=== PATIENT | female | born 1960 | race Caucasian/White ===

== ENCOUNTER 2017-02-19 14:27 | Emergency (ER) | payer MEDICAID, OTHER ==
[~2017-02-19] VITALS: Ht 165.1 cm; Wt 120.0 kg
[~2017-02-19 14:27] MED LIST: CELE40TA PO; FURO40TA PO; GLIM2TAB PO; LAMO25 PO; LEVO100T5 PO; LISI-590 PO; LYRI75CA PO; METO-309 PO; NOVOLOGP2 SQ; PRAZ5 PO; RISP3 PO
[2017-02-19 14:35] VITALS: BP 156/85; PULSE 90; RESP 18; TEMP 98.3; O2SAT 97
[2017-02-19 14:43] VITALS: BP 156/85; PULSE 90; RESP 18; O2SAT 97
--- NOTE | 2017-02-19 14:44 | PD ---
HPI Chief Complaint: psychiatric evaluation Time Seen by Provider: 14:40 Travel History International Travel<30 days: No Contact w/Intl Traveler<30days: No History of Present Illness HPI Patient comes to the emergency Department under Urias act by police for suicidal ideations. Patient admits to thoughts of harming herself by walking into traffic. Patient reports she has tried to harm herself in the past approximately 6 months ago. Patient was reportedly seen at [facility] and evaluated there for a cough having chest x-ray along with blood work done and diagnosed with bronchitis and given a prescription for Z-Tano. Patient has discharge paperwork along with prescription with her. Patient was discharged, walked across the street to an urgent care, and started making suicidal statements. Patient's only medical concerns at this time is her chronic pain. PFSH Past Medical History Asthma: Yes Blood Disorders: No Anxiety: Yes Depression: Yes Cardiovascular Problems: Yes (HTN) High Cholesterol: Yes Chest Pain: Yes Congestive Heart Failure: Yes COPD: Yes Cerebrovascular Accident: Yes (CVA X 2 ) Diabetes: Yes Diminished Hearing: No Endocrine: No Gastrointestinal Disorders: No GERD: Yes Genitourinary: No Hepatitis: Yes (C) Hypertension: Yes Immune Disorder: No Implanted Vascular Access Dvce: Yes Musculoskeletal: No Neurologic: No Psychiatric: Yes Respiratory: Yes (COPD) Immunizations Current: Yes Schizophrenia: Yes Sleep Apnea: Yes Thyroid Disease: Yes Menopausal: Yes : 3 Para: 3 Tubal Ligation: Yes Past Surgical History Abdominal Surgery: Yes (CURTIS) Cholecystectomy: Yes Gynecologic Surgery: Yes Hysterectomy: Yes Joint Replacement: Yes ( TOTAL KNEE REPLACEMENT -RIGHT) Oral Surgery: Yes (TEETH EXTRACTED) Other Surgery: Yes Social History Alcohol Use: No Tobacco Use: Yes (1.5 PPD) Substance Use: No Allergies-Medications (Allergen,Severity, Reaction): Coded Allergies: Aspirin (Verified Allergy, Severe, Anaphylaxis, 09/23/16) Darvocet-N 100 (Verified Allergy, Severe, 09/23/16) Tramadol (Verified Allergy, Severe, 09/23/16) Reported Meds & Prescriptions Reported Meds & Active Scripts Active Bactrim DS (Sulfamethoxazole-Trimethoprim) 800-160 Mg Tab 1 Tab PO BID Reported Zestril (Lisinopril) 10 Mg Tab 10 Mg PO DAILY Risperdal (Risperidone) 3 Mg Tab 3 Mg PO HS Novolog Inj (Insulin Aspart) 1,000 Unit/10 Ml Vial 1-9 Units SQ ACHS Max dose at bedtime:( )units; sugars less than 70,(0)units; sugars 150-199,(1) unit; sugars 200-249,(3) units; sugars 250-299,(5) units; sugars 300-349,(7) units; sugars greater than 349,(9) units Lopressor (Metoprolol Tartrate) 50 Mg Tab 50 Mg PO BID Levothyroxine (Levothyroxine Sodium) 100 Mcg Tab 100 Mcg PO DAILY Lamictal (Lamotrigine) 25 Mg Tab 25 Mg PO BID Glimepiride 2 Mg Tab 2 Mg PO DAILY Take with breakfast or first main meal Furosemide 40 Mg Tab 40 Mg PO DAILY Minipress (Prazosin HCl) 5 Mg Cap 5 Mg PO TID Celexa (Citalopram Hydrobromide) 40 Mg Tab 40 Mg PO DAILY Lyrica (Pregabalin) 75 Mg Cap 75 Mg PO DAILY Review of Systems Except as stated in HPI: all other systems reviewed are Neg Physical Exam Narrative GENERAL: Well-developed, overly nourished, in no acute distress, and non-ill appearing. SKIN: Focused skin assessment warm and dry. HEAD: Atraumatic. Normocephalic. EYES: Pupils equal and round. EOMI. No scleral icterus. No injection or drainage. ENT: No nasal bleeding or discharge. Mucous membranes pink and moist. NECK: Trachea midline. Supple. No nuclear rigidity. CARDIOVASCULAR: Regular rate and rhythm. No murmur appreciated. RESPIRATORY: No accessory muscle use. No respiratory distress. Clear to auscultation. Breath sounds equal bilaterally. MUSCULOSKELETAL: No obvious deformities. No clubbing. No cyanosis. No edema. Full range of motion. NEUROLOGICAL: Awake and alert. No obvious cranial nerve deficits. Motor grossly within normal limits. Normal speech. PSYCHIATRIC: Appropriate mood and affect. Data Data Last Documented VS Vital Signs Date Time Temp Pulse Resp B/P Pulse Ox O2 Delivery O2 Flow Rate FiO2 02/19/17 14:43 93 18 02/19/17 14:43 156/85 97 Nasal Cannula 2 02/19/17 14:35 98.3 Orders Complete Blood Count With Diff (02/19/17 14:39) Comprehensive Metabolic Panel (02/19/17 14:39) Urinalysis - C+S If Indicated (02/19/17 14:39) Psych Screen (02/19/17 14:39) Drug Screen, Random Urine (02/19/17 14:39) Alcohol (Ethanol) (02/19/17 14:39) Salicylates (Aspirin) (02/19/17 14:39) Tylenol (Acetaminophen) (02/19/17 14:39) Urine Culture (02/19/17 16:25) Sulfamet-Trimeth Ds 800-160 Mg (Bactrim (02/19/17 17:30) Labs Laboratory Tests Test 02/19/17 02/19/17 14:50 16:25 White Blood Count 13.0 TH/MM3 Red Blood Count 4.08 MIL/MM3 Hemoglobin 12.5 GM/DL Hematocrit 35.9 % Mean Corpuscular Volume 88.0 FL Mean Corpuscular Hemoglobin 30.7 PG Mean Corpuscular Hemoglobin 34.8 % Concent Red Cell Distribution Width 16.1 % Platelet Count 317 TH/MM3 Mean Platelet Volume 6.7 FL Neutrophils (%) (Auto) 86.5 % Lymphocytes (%) (Auto) 8.1 % Monocytes (%) (Auto) 5.2 % Eosinophils (%) (Auto) 0.0 % Basophils (%) (Auto) 0.2 % Neutrophils # (Auto) 11.2 TH/MM3 Lymphocytes # (Auto) 1.1 TH/MM3 Monocytes # (Auto) 0.7 TH/MM3 Eosinophils # (Auto) 0.0 TH/MM3 Basophils # (Auto) 0.0 TH/MM3 CBC Comment DIFF FINAL Differential Comment Sodium Level 136 MEQ/L Potassium Level 4.1 MEQ/L Chloride Level 96 MEQ/L Carbon Dioxide Level 34.6 MEQ/L Anion Gap 5 MEQ/L Blood Urea Nitrogen 11 MG/DL Creatinine 0.68 MG/DL Estimat Glomerular Filtration 89 ML/MIN Rate Random Glucose 134 MG/DL Calcium Level 9.4 MG/DL Total Bilirubin 0.3 MG/DL Aspartate Amino Transf 21 U/L (AST/SGOT) Alanine Aminotransferase 32 U/L (ALT/SGPT) Alkaline Phosphatase 109 U/L Total Protein 8.5 GM/DL Albumin 3.3 GM/DL Salicylates Level 2.6 MG/DL Acetaminophen Level LESS THAN 2.0 MCG/ML Ethyl Alcohol Level LESS THAN 3 MG/DL Urine Color YELLOW Urine Turbidity HAZY Urine pH 6.5 Urine Specific [place] 1.016 Urine Protein TRACE mg/dL Urine Glucose (UA) NEG mg/dL Urine Ketones NEG mg/dL Urine Occult Blood NEG Urine Nitrite POS Urine Bilirubin NEG Urine Urobilinogen LESS THAN 2.0 MG/DL Urine Leukocyte Esterase NEG Urine RBC LESS THAN 1 /hpf Urine WBC 3 /hpf Urine Squamous Epithelial <1 /hpf Cells Urine Bacteria MANY /hpf Urine Mucus FEW /lpf Microscopic Urinalysis Comment CULTURE INDICATED Urine Opiates Screen NEG Urine Barbiturates Screen NEG Urine Amphetamines Screen NEG Urine Benzodiazepines Screen NEG Urine Cocaine Screen NEG Urine Cannabinoids Screen NEG MDM Medical Decision Making Medical Screen Exam Complete: Yes Emergency Medical Condition: Yes Differential Diagnosis Homicidal, suicidal, chronic pain, depression, schizoaffective, UTI, other Narrative Course Patient was seen and examined. Labs were obtained and reviewed. Patient was given a dose of Bactrim in the emergency department and given a prescription to go home. Patient medically cleared for further treatment and evaluation by psych. Final disposition per psych. Diagnosis Primary Impression: UTI (urinary tract infection) Qualified Code: N39.0 - Urinary tract infection without hematuria, site unspecified Patient Instructions: General Instructions, Urinary Tract Infection in Women ( ED) Additional Instructions: Follow-up with your primary care physician this week for reevaluation of urinary tract infection. Take all medication as prescribed. Return to the emergency department if symptoms get worse. Med/Other Pt SpecificInfo: Prescription(s) given Scripts Sulfamethoxazole-Trimethoprim (Bactrim DS)800-160 Mg Tab1 Tab PO BID #14 TAB Ref 0 Prov:Tessa Rodríguez MD 02/19/17 Condition: Stable Israel Mendoza Feb 19, 2017 14:44
[2017-02-19 15:33] LABS: AUTOMATED NEUTROPHIL # 11.2 TH/MM3 (1.8-7.7); BASOPHIL % 0.2 % (0.0-2.0); HEMATOCRIT 35.9 % (35.0-46.0); HEMO FLAGS DIFF FINAL; LYMPH % 8.1 % (9.0-44.0); LYMPHOCYTE # 1.1 TH/MM3 (1.0-4.8); MEAN CORPUSCULAR HEMOGLOBIN 30.7 PG (27.0-34.0); MEAN CORPUSCULAR HGB CONC 34.8 % (32.0-36.0); MONO % 5.2 % (0.0-8.0); NEUT % 86.5 % (16.0-70.0); PLATELET COUNT 317 TH/MM3 (150-450); RED BLOOD COUNT 4.08 MIL/MM3 (4.00-5.30); RED CELL DISTRIBUTION WIDTH 16.1 % (11.6-17.2)
[2017-02-19 15:54] LABS: ALT (GPT) 32 U/L (10-53); ANION GAP 5 MEQ/L (5-15); AST (GOT) 21 U/L (15-37); BICARBONATE 34.6 MEQ/L (21.0-32.0); BLOOD UREA NITROGEN 11 MG/DL (7-18); CHLORIDE 96 MEQ/L (98-107); GLOMERULAR FILTRATION RATE 89 ML/MIN (>89); POTASSIUM 4.1 MEQ/L (3.5-5.1); SODIUM (NA) 136 MEQ/L (136-145)
[2017-02-19 15:56] LABS: ALKALINE PHOSPHATASE 109 U/L (45-117); TOTAL BILIRUBIN ADULT 0.3 MG/DL (0.2-1.0)
[2017-02-19 15:58] LABS: ACETAMINOPHEN LESS THAN 2.0 MCG/ML (10.0-30.0)
[2017-02-19 16:53] LABS: AMPHETAMINE, URINE NEG (NEG); BARBITURATES, URINE NEG (NEG); COCAINE, URINE NEG (NEG)
[2017-02-19 17:17] LABS: BACTERIA, URINE MANY /hpf; BLOOD, URINE NEG (NEG); COMMENT (UR) CULTURE INDICATED; CULTURE IF INDICATED CULTURE INDICATED; GLUCOSE,URINE NEG (NEG); KETONE, URINE NEG (NEG); MUCUS URINE FEW /lpf (OCC); PH, URINE 6.5 (5.0-8.5); SQUAMOUS EPITHELIAL CELL URINE <1 /hpf (0-5); URINE COLOR YELLOW (YELLW/STRAW)
[2017-02-19 17:20] LABS: NITRITE,URINE POS (NEG)
[2017-02-19] MEDS ORDERED: BACT800T5 PO (17:30)
[2017-02-19] MEDS ORDERED: SULFAMETHOXAZOLE-TRIMETHOPRIM DS 800-160 MG TAB PO ONE (17:30)
[2017-02-19 18:06] VITALS: BP 165/78; PULSE 89; RESP 18; O2SAT 98
[2017-02-19 20:44] VITALS: BP 113/54; PULSE 80; RESP 15; O2SAT 91
[2017-02-19 22:55] VITALS: RESP 18
[2017-02-20 02:28] VITALS: BP 122/59; PULSE 98; RESP 19; O2SAT 98
[2017-02-20 06:00] VITALS: BP 108/53; PULSE 100; RESP 18; O2SAT 90
--- NOTE | 2017-02-20 10:49 | PD ---
History of Present Illness Chief Complaint: Psychiatric Symptoms Time Seen by Provider: 10:30 Travel History International Travel<30 Days: No Contact w/Intl Traveler<30days: No Known affected area: No Legal Status Legal Status: Urias Act Urias Act Signed By: AYAAN Kulkarni History of Present Illness: This is a 56-year-old obese female with a history of multiple medical problems including bronchitis, diabetes, cardiovascular disease, history of CVA, etc. who recently came to [place] with her adult son and adult daughter. She states she came here to visit her mother, who had some type of cardiovascular event. The family appears to be indigent and the son and daughter are staying in the family truck at the moment. The patient reportedly went to [facility] yesterday and to the urgent care center across from the hospital yesterday, complaining of suicidal ideation. At this time, the patient is referencing her need for medical care and states she wants to see Dr. Carlyn warner and damian and , who has been her primary care physician in the past. At the same time, when confronted with the need to make an appointment and follow up with her primary care physician, being discharged from this facility, the patient reports suicidal ideation. This physician reviewed the records and notes the patient has made suicide gestures in the past and been variously diagnosed with multiple psychiatric issues, including schizophrenia. The patient does not show any actual evidence of psychotic thinking, including hallucinations, delusions, thought blocking, etc. In fact, this physician feels the patient is being manipulative in order to be taken care of due to her current financial situation and homelessness. While this physician acknowledges the patient may act out and attempt to harm herself to demonstrate her need for hospitalization, this physician feels it is counter therapeutic to give into this manipulativeness at this time. Patient admits she has been noncompliant with treatment in the past, multiple times, with Dr. Carlyn warner. [facility] Past Medical History Hx Anticoagulant Therapy: Yes Asthma: Yes Blood Disorders: No Anxiety: Yes Depression: Yes Cardiovascular Problems: Yes High Cholesterol: Yes Chest Pain: Yes Congestive Heart Failure: Yes COPD: Yes Cerebrovascular Accident: Yes (CVA X 2 ) Diabetes: Yes Patient Takes Glucophage: Yes Diminished Hearing: No Endocrine: No Gastrointestinal Disorders: No GERD: Yes Genitourinary: No Hepatitis: Yes (C) Hypertension: Yes Immune Disorder: No Implanted Vascular Access Dvce: Yes Musculoskeletal: No Neurologic: No Psychiatric: Yes Respiratory: Yes Immunizations Current: Yes Schizophrenia: Yes Sleep Apnea: Yes Thyroid Disease: Yes Tetanus Vaccination: > 5 Years Influenza Vaccination: No Menopausal: Yes : 3 Para: 3 Tubal Ligation: Yes Past Surgical History Abdominal Surgery: Yes (CURTIS) Cholecystectomy: Yes Gynecologic Surgery: Yes Hysterectomy: Yes Joint Replacement: Yes ( TOTAL KNEE REPLACEMENT -RIGHT) Oral Surgery: Yes (TEETH EXTRACTED) Other Surgery: Yes Psychiatric History Psychiatric History Hx Psychiatric Treatment: PATIENT WAS LAST ADMITTED TO [facility] FROM 07/01/16 TO 07/03/16 FOR SCHIZOAFFECTIVE DISORDER. History of Inpatient Treatment: Yes Social History Hx Alcohol Use: No Hx Tobacco Use: Yes (1.5 PPD) Hx Substance Use: No Substance Use Type: Nicotine/Cigarettes Hx of Substance Use Treatment: No Allergies-Medications (Allergen,Severity, Reaction): Coded Allergies: Aspirin (Verified Allergy, Severe, Anaphylaxis, 02/19/17) Darvocet-N 100 (Verified Allergy, Severe, 02/19/17) Tramadol (Verified Allergy, Severe, 02/19/17) [place] (Unverified Allergy, Unknown, 02/19/17) Reported Meds & Prescriptions Reported Meds & Active Scripts Active Bactrim DS (Sulfamethoxazole-Trimethoprim) 800-160 Mg Tab 1 Tab PO BID Reported Zestril (Lisinopril) 10 Mg Tab 10 Mg PO DAILY Risperdal (Risperidone) 3 Mg Tab 3 Mg PO HS Novolog Inj (Insulin Aspart) 1,000 Unit/10 Ml Vial 1-9 Units SQ ACHS Max dose at bedtime:( )units; sugars less than 70,(0)units; sugars 150-199,(1) unit; sugars 200-249,(3) units; sugars 250-299,(5) units; sugars 300-349,(7) units; sugars greater than 349,(9) units Lopressor (Metoprolol Tartrate) 50 Mg Tab 50 Mg PO BID Levothyroxine (Levothyroxine Sodium) 100 Mcg Tab 100 Mcg PO DAILY Lamictal (Lamotrigine) 25 Mg Tab 25 Mg PO BID Glimepiride 2 Mg Tab 2 Mg PO DAILY Take with breakfast or first main meal Furosemide 40 Mg Tab 40 Mg PO DAILY Minipress (Prazosin HCl) 5 Mg Cap 5 Mg PO TID Celexa (Citalopram Hydrobromide) 40 Mg Tab 40 Mg PO DAILY Lyrica (Pregabalin) 75 Mg Cap 75 Mg PO DAILY Review of Systems ROS Limitations: Clinical Condition Exam Exam Limitations: Clinical Condition Alert: Yes Lapel: Person, Place, Date, Situation Mood: Calm Affect: Appropriate Speech: Clear, Logical Eye Contact: Normal Memory Intact: Immediate, Recent, Remote Suicidal: Ideation Insight/Judgement Adequate MDM Medical Decision Making Medical Record Reviewed: Yes Assessment/Plan Patient is being discharged back to her adult son and daughter. She needs to set an appointment with Dr. Carlyn warner and find adequate living situation. Again, despite the risks of the patient acting out, this physician does not feel it is therapeutic to admit her at this time. Patient and adult children need to plan for their self-care more appropriately. Orders Complete Blood Count With Diff (02/19/17 14:39) Comprehensive Metabolic Panel (02/19/17 14:39) Urinalysis - C+S If Indicated (02/19/17 14:39) Psych Screen (02/19/17 14:39) Drug Screen, Random Urine (02/19/17 14:39) Alcohol (Ethanol) (02/19/17 14:39) Salicylates (Aspirin) (02/19/17 14:39) Tylenol (Acetaminophen) (02/19/17 14:39) Urine Culture (02/19/17 16:25) Sulfamet-Trimeth Ds 800-160 Mg (Bactrim (02/19/17 17:30) Diet 2000 Ada Cons Carb (02/19/17 Dinner) Diet Regular Basic (02/20/17 Breakfast) Diet Regular Basic (02/20/17 Lunch) Results Vital Signs Date Time Temp Pulse Resp B/P Pulse Ox O2 Delivery O2 Flow Rate FiO2 02/20/17 06:00 100 18 108/53 90 Room Air 02/20/17 02:28 98 19 122/59 98 Room Air 02/19/17 22:55 18 Room Air 02/19/17 20:44 80 15 113/54 91 Room Air 02/19/17 18:06 89 18 165/78 98 Nasal Cannula 2 02/19/17 14:43 93 18 02/19/17 14:43 90 18 156/85 97 Nasal Cannula 2 02/19/17 14:35 98.3 90 18 156/85 97 Laboratory Tests Test 02/19/17 02/19/17 14:50 16:25 White Blood Count 13.0 Red Blood Count 4.08 Hemoglobin 12.5 Hematocrit 35.9 Mean Corpuscular Volume 88.0 Mean Corpuscular Hemoglobin 30.7 Mean Corpuscular Hemoglobin 34.8 Concent Red Cell Distribution Width 16.1 Platelet Count 317 Mean Platelet Volume 6.7 Neutrophils (%) (Auto) 86.5 Lymphocytes (%) (Auto) 8.1 Monocytes (%) (Auto) 5.2 Eosinophils (%) (Auto) 0.0 Basophils (%) (Auto) 0.2 Neutrophils # (Auto) 11.2 Lymphocytes # (Auto) 1.1 Monocytes # (Auto) 0.7 Eosinophils # (Auto) 0.0 Basophils # (Auto) 0.0 CBC Comment DIFF FINAL Differential Comment Sodium Level 136 Potassium Level 4.1 Chloride Level 96 Carbon Dioxide Level 34.6 Anion Gap 5 Blood Urea Nitrogen 11 Creatinine 0.68 Estimat Glomerular Filtration 89 Rate Random Glucose 134 Calcium Level 9.4 Total Bilirubin 0.3 Aspartate Amino Transf 21 (AST/SGOT) Alanine Aminotransferase 32 (ALT/SGPT) Alkaline Phosphatase 109 Total Protein 8.5 Albumin 3.3 Salicylates Level 2.6 Acetaminophen Level LESS THAN 2.0 Ethyl Alcohol Level LESS THAN 3 Urine Color YELLOW Urine Turbidity HAZY Urine pH 6.5 Urine Specific [place] 1.016 Urine Protein TRACE Urine Glucose (UA) NEG Urine Ketones NEG Urine Occult Blood NEG Urine Nitrite POS Urine Bilirubin NEG Urine Urobilinogen LESS THAN 2.0 Urine Leukocyte Esterase NEG Urine RBC LESS THAN 1 Urine WBC 3 Urine Squamous Epithelial <1 Cells Urine Bacteria MANY Urine Mucus FEW Microscopic Urinalysis Comment CULTURE INDICATED Urine Opiates Screen NEG Urine Barbiturates Screen NEG Urine Amphetamines Screen NEG Urine Benzodiazepines Screen NEG Urine Cocaine Screen NEG Urine Cannabinoids Screen NEG Date/Time Procedure Status Source Growth 02/19/17 16:25 Urine Culture Worksheet Urine Random Urine Pending Diagnosis Primary Impression: UTI (urinary tract infection) Additional Impression: Adjustment disorder with mixed disturbance of emotions and conduct Patient Instructions: General Instructions, Urinary Tract Infection in Women ( ED) Additional Instructions: Follow-up with your primary care physician this week for reevaluation of urinary tract infection. Take all medication as prescribed. Return to the emergency department if symptoms get worse. Prescriptions Sulfamethoxazole-Trimethoprim (Bactrim DS)800-160 Mg Tab1 Tab PO BID #14 TAB Ref 0 Prov:Tessa Rodríguez MD 02/19/17 Condition: Stable Problem Qualifiers Primary Impression: UTI (urinary tract infection) Qualified Code: N39.0 - Urinary tract infection without hematuria, site unspecified Bin Slater MD Feb 20, 2017 10:49
[2017-02-20 11:27] VITALS: BP 143/70; PULSE 100; RESP 18; O2SAT 92
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
== END 2017-02-20 13:45 | disposition home or self-care (01) ==
LOC: NEPE 14:27 → NEPJ 02-20 13:45
DX: F43.25 Adjustment disorder with mixed disturbance of emotions and conduct (principal); N39.0 Urinary tract infection, site not specified; B96.29 Other Escherichia coli [E. coli] as the cause of diseases classified elsewhere; Z79.899 Other long term (current) drug therapy
CPT/HCPCS: 80053; 80307; 81001; 85025; 87077; 87086; 87186

== ENCOUNTER 2017-02-22 00:35 | Emergency (ER) | payer OTHER ==
[~2017-02-22 00:35] MED LIST changes: +BACT800T5 PO
[2017-02-22 00:46] VITALS: BP 137/74; PULSE 74; RESP 20; TEMP 98.3; O2SAT 93
[2017-02-22] MEDS ORDERED: MACR100C2 PO (00:46)
--- NOTE | 2017-02-22 00:49 | PD ---
HPI Chief Complaint: Urias act Time Seen by Provider: 00:50 Travel History International Travel<30 days: No Contact w/Intl Traveler<30days: No Traveled to known affect area: No History of Present Illness HPI This patient is transferred here from [facility] for psychiatric evaluation. Is a 56-year-old female who it appears went to [facility] today for evaluation of chronic abdominal pain. She had lab work and imaging studies. She is being discharged she said that she was going to kill herself by overdose and so she was placed under Urias act. The patient was just seen here a few days ago by psychiatry. She was discharged at that time. She reports that she's been feeling suicidal for the past few weeks. She does endorse a history of bipolar disorder. She does not currently see a psychiatrist on an outpatient basis. Denies any drug or alcohol use, homicidal ideation, she has no other complaints at this time. PFSH Past Medical History Hx Anticoagulant Therapy: Yes Asthma: Yes Blood Disorders: No Anxiety: Yes Depression: Yes Cardiovascular Problems: Yes High Cholesterol: Yes Chest Pain: Yes Congestive Heart Failure: Yes COPD: Yes Cerebrovascular Accident: Yes (CVA X 2 ) Diabetes: Yes Diminished Hearing: No Endocrine: No Gastrointestinal Disorders: No GERD: Yes Genitourinary: No Hepatitis: Yes (C) Hypertension: Yes Immune Disorder: No Implanted Vascular Access Dvce: Yes Musculoskeletal: No Neurologic: No Psychiatric: Yes Respiratory: Yes Immunizations Current: Yes Schizophrenia: Yes Sleep Apnea: Yes Thyroid Disease: Yes Menopausal: Yes : 3 Para: 3 Tubal Ligation: Yes Past Surgical History Abdominal Surgery: Yes (CURTIS) Cholecystectomy: Yes Gynecologic Surgery: Yes Hysterectomy: Yes Joint Replacement: Yes ( TOTAL KNEE REPLACEMENT -RIGHT) Oral Surgery: Yes (TEETH EXTRACTED) Other Surgery: Yes Social History Alcohol Use: No Tobacco Use: Yes (1.5 PPD) Substance Use: No Allergies-Medications (Allergen,Severity, Reaction): Coded Allergies: Aspirin (Verified Allergy, Severe, Anaphylaxis, 02/22/17) Darvocet-N 100 (Verified Allergy, Severe, 02/22/17) Tramadol (Verified Allergy, Severe, 02/22/17) Gabapentin (Verified Allergy, Unknown, 02/22/17) per Discharge paperwork from [facility]. Grape (Verified Allergy, Unknown, 02/22/17) Grape Flavor - per Discharge paperwork from [facility]. Miralax (Verified Allergy, Unknown, 02/22/17) per Discharge paperwork from [facility]. Oxycodone (Verified Allergy, Unknown, 02/22/17) per Discharge paperwork from [facility]. Propoxyphene (Verified Allergy, Unknown, 02/22/17) per Discharge paperwork from [facility]. [place] (Unverified Allergy, Unknown, 02/22/17) Uncoded Allergies: Tape (Allergy, Unknown, 02/20/17) per Discharge paperwork from [facility]. Reported Meds & Prescriptions Reported Meds & Active Scripts Active Macrobid (Nitrofurantoin Monoh/Nitrofur Macro) 100 Mg Cap 100 Mg PO BID 7 Days Bactrim DS (Sulfamethoxazole-Trimethoprim) 800-160 Mg Tab 1 Tab PO BID Reported Zestril (Lisinopril) 10 Mg Tab 10 Mg PO DAILY Risperdal (Risperidone) 3 Mg Tab 3 Mg PO HS Novolog Inj (Insulin Aspart) 1,000 Unit/10 Ml Vial 1-9 Units SQ ACHS Max dose at bedtime:( )units; sugars less than 70,(0)units; sugars 150-199,(1) unit; sugars 200-249,(3) units; sugars 250-299,(5) units; sugars 300-349,(7) units; sugars greater than 349,(9) units Lopressor (Metoprolol Tartrate) 50 Mg Tab 50 Mg PO BID Levothyroxine (Levothyroxine Sodium) 100 Mcg Tab 100 Mcg PO DAILY Lamictal (Lamotrigine) 25 Mg Tab 25 Mg PO BID Glimepiride 2 Mg Tab 2 Mg PO DAILY Take with breakfast or first main meal Furosemide 40 Mg Tab 40 Mg PO DAILY Minipress (Prazosin HCl) 5 Mg Cap 5 Mg PO TID Celexa (Citalopram Hydrobromide) 40 Mg Tab 40 Mg PO DAILY Lyrica (Pregabalin) 75 Mg Cap 75 Mg PO DAILY Review of Systems Except as stated in HPI: all other systems reviewed are Neg Physical Exam Narrative GENERAL: Well developed well-nourished female in no acute distress SKIN: Warm and dry. HEAD: Atraumatic. Normocephalic. EYES: Pupils equal and round. No scleral icterus. No injection or drainage. ENT: No nasal bleeding or discharge. Mucous membranes pink and moist. NECK: Trachea midline. No JVD. CARDIOVASCULAR: Regular rate and rhythm. No murmur appreciated. RESPIRATORY: No accessory muscle use. Clear to auscultation. Breath sounds equal bilaterally. GASTROINTESTINAL: Abdomen soft, non-tender, nondistended. MUSCULOSKELETAL: No obvious deformities. No clubbing. No cyanosis. No edema. NEUROLOGICAL: Awake and alert. No obvious cranial nerve deficits. Motor grossly within normal limits. Normal speech. PSYCHIATRIC: Appropriate mood and affect; insight and judgment normal. Data Data Last Documented VS Vital Signs Date Time Temp Pulse Resp B/P Pulse Ox O2 Delivery O2 Flow Rate FiO2 02/22/17 00:46 98.3 74 20 137/74 93 Orders Nitrofurantoin Monohyd Macrocr (Macrobid (02/22/17 00:45) Psych Screen (02/22/17 00:45) [facility] Medical Decision Making Medical Screen Exam Complete: Yes Emergency Medical Condition: Yes Medical Record Reviewed: Yes Differential Diagnosis Malingering, bipolar disorder, acute psychosis, substance-induced disorder, depression, adjustment reaction Narrative Course I reviewed the patient's labs from [facility], CBC reveals a WBC of 11.2 otherwise unremarkable, urinalysis revealed 19 wbc's otherwise unremarkable, BMP is unremarkable, CT of the abdomen reveals no acute abnormalities, The patient was seen here a few days ago and saw psychiatry. She had a urinalysis at that time which reveals esbl Escherichia coli, resistant to many antibiotics, susceptible to Macrobid. She was discharged with a prescription for Bactrim but she lost the prescription. She will be started on Macrobid here. Mental health screening discussed with the patient. Psychiatric screen ordered. The patient is medically cleared for psychiatric disposition. Diagnosis Primary Impression: Suicidal ideation Scripts Nitrofurantoin Monohydrate Macrocrystals (Macrobid)100 Mg [id number] Mg PO BID 7 Days Ref 0 Prov:Kurtis Obregon MD 02/22/17 Ez Lobo Feb 22, 2017 00:49
[2017-02-22] MEDS: NITROFURANTOIN MONOHYD MACROCR 100 MG CAP PO SCH ×2 (00:58→11:09)
[2017-02-22 03:15] VITALS: BP 168/73; PULSE 72; RESP 18; O2SAT 98
== END 2017-02-22 11:46 | disposition home or self-care (01) ==
LOC: NEPD 00:35 → NEPB 11:46
DX: R45.851 Suicidal ideations (principal); F31.9 Bipolar disorder, unspecified; F41.8 Other specified anxiety disorders; I50.9 Heart failure, unspecified; I10 Essential (primary) hypertension; F20.9 Schizophrenia, unspecified; F17.210 Nicotine dependence, cigarettes, uncomplicated
CPT/HCPCS: 99284

== ENCOUNTER 2017-02-22 14:32 | Emergency (ER) | payer OTHER ==
[~2017-02-22] VITALS: Ht 162.6 cm; Wt 100.0 kg
[~2017-02-22 14:32] MED LIST changes: +MACR100C2 PO
[2017-02-22 15:29] VITALS: BP 148/74; PULSE 75; RESP 18; TEMP 98; TEMP 98.9; O2SAT 95
--- NOTE | 2017-02-22 15:56 | PD ---
HPI Chief Complaint: Psychiatric Symptoms Time Seen by Provider: 15:53 Travel History International Travel<30 days: No Contact w/Intl Traveler<30days: No Traveled to known affect area: No History of Present Illness HPI Patient comes to the emergency Department under Urias act by police for suicidal statements. Patient states she does not want to live anymore. Patient reports she has tried to harm herself in the past. Patient was just seen in the emergency department 3 days ago for same. Patient reports she is taking her antibiotics as prescribed. Patient's only medical concerns at this time is her chronic pain. Denies any fevers, chest pain, abdominal pain nausea vomiting, or headaches. PFSH Past Medical History Hx Anticoagulant Therapy: Yes Asthma: Yes Blood Disorders: No Anxiety: Yes Depression: Yes Cardiovascular Problems: Yes High Cholesterol: Yes Chest Pain: Yes Congestive Heart Failure: Yes COPD: Yes Cerebrovascular Accident: Yes (CVA X 2 ) Diabetes: Yes Diminished Hearing: No Endocrine: No Gastrointestinal Disorders: No GERD: Yes Genitourinary: No Hepatitis: Yes (C) Hypertension: Yes Immune Disorder: No Implanted Vascular Access Dvce: Yes Musculoskeletal: No Neurologic: No Psychiatric: Yes Respiratory: Yes Immunizations Current: Yes Schizophrenia: Yes Sleep Apnea: Yes Thyroid Disease: Yes Menopausal: Yes : 3 Para: 3 Tubal Ligation: Yes Past Surgical History Abdominal Surgery: Yes (CURTIS) Cholecystectomy: Yes Gynecologic Surgery: Yes Hysterectomy: Yes Joint Replacement: Yes ( TOTAL KNEE REPLACEMENT -RIGHT) Oral Surgery: Yes (TEETH EXTRACTED) Other Surgery: Yes Social History Alcohol Use: No Tobacco Use: Yes (1.5 PPD) Substance Use: No Allergies-Medications (Allergen,Severity, Reaction): Coded Allergies: Aspirin (Verified Allergy, Severe, Anaphylaxis, 02/22/17) Darvocet-N 100 (Verified Allergy, Severe, 02/22/17) Tramadol (Verified Allergy, Severe, 02/22/17) Gabapentin (Verified Allergy, Unknown, 02/22/17) per Discharge paperwork from [facility]. Grape (Verified Allergy, Unknown, 02/22/17) Grape Flavor - per Discharge paperwork from [facility]. Miralax (Verified Allergy, Unknown, 02/22/17) per Discharge paperwork from [facility]. Oxycodone (Verified Allergy, Unknown, 02/22/17) per Discharge paperwork from [facility]. Propoxyphene (Verified Allergy, Unknown, 02/22/17) per Discharge paperwork from [facility]. [place] (Unverified Allergy, Unknown, 02/22/17) *MDRO Multi-Drug Resistant Organism (Verified Adverse Reaction, Unknown, ) ESBL E. coli (urine) - 02/19/2017 Uncoded Allergies: Tape (Allergy, Unknown, 02/20/17) per Discharge paperwork from [facility]. Reported Meds & Prescriptions Reported Meds & Active Scripts Active Macrobid (Nitrofurantoin Monoh/Nitrofur Macro) 100 Mg Cap 100 Mg PO BID 7 Days Bactrim DS (Sulfamethoxazole-Trimethoprim) 800-160 Mg Tab 1 Tab PO BID Reported Zestril (Lisinopril) 10 Mg Tab 10 Mg PO DAILY Risperdal (Risperidone) 3 Mg Tab 3 Mg PO HS Novolog Inj (Insulin Aspart) 1,000 Unit/10 Ml Vial 1-9 Units SQ ACHS Max dose at bedtime:( )units; sugars less than 70,(0)units; sugars 150-199,(1) unit; sugars 200-249,(3) units; sugars 250-299,(5) units; sugars 300-349,(7) units; sugars greater than 349,(9) units Lopressor (Metoprolol Tartrate) 50 Mg Tab 50 Mg PO BID Levothyroxine (Levothyroxine Sodium) 100 Mcg Tab 100 Mcg PO DAILY Lamictal (Lamotrigine) 25 Mg Tab 25 Mg PO BID Glimepiride 2 Mg Tab 2 Mg PO DAILY Take with breakfast or first main meal Furosemide 40 Mg Tab 40 Mg PO DAILY Minipress (Prazosin HCl) 5 Mg Cap 5 Mg PO TID Celexa (Citalopram Hydrobromide) 40 Mg Tab 40 Mg PO DAILY Lyrica (Pregabalin) 75 Mg Cap 75 Mg PO DAILY Review of Systems Except as stated in HPI: all other systems reviewed are Neg Physical Exam Narrative GENERAL: Well-developed, overly nourished, in no acute distress, and non-ill appearing. SKIN: Focused skin assessment warm and dry. HEAD: Atraumatic. Normocephalic. EYES: Pupils equal and round. EOMI. No scleral icterus. No injection or drainage. ENT: No nasal bleeding or discharge. Mucous membranes pink and moist. NECK: Trachea midline. Supple. No nuclear rigidity. CARDIOVASCULAR: Regular rate and rhythm. No murmur appreciated. RESPIRATORY: No accessory muscle use. No respiratory distress. Clear to auscultation. Breath sounds equal bilaterally. MUSCULOSKELETAL: No obvious deformities. No clubbing. No cyanosis. No edema. Full range of motion. NEUROLOGICAL: Awake and alert. No obvious cranial nerve deficits. Motor grossly within normal limits. Normal speech. PSYCHIATRIC: Appropriate mood and affect. Data Data Last Documented VS Vital Signs Date Time Temp Pulse Resp B/P Pulse Ox O2 Delivery O2 Flow Rate FiO2 02/22/17 15:29 98.9 75 18 148/74 95 Orders Complete Blood Count With Diff (02/22/17 15:39) Comprehensive Metabolic Panel (02/22/17 15:39) Urinalysis - C+S If Indicated (02/22/17 15:39) Psych Screen (02/22/17 15:39) Drug Screen, Random Urine (02/22/17 15:39) Alcohol (Ethanol) (02/22/17 15:39) Salicylates (Aspirin) (02/22/17 15:39) Tylenol (Acetaminophen) (02/22/17 15:39) Labs Laboratory Tests Test 02/22/17 16:12 White Blood Count 9.8 TH/MM3 Red Blood Count 4.12 MIL/MM3 Hemoglobin 12.0 GM/DL Hematocrit 36.6 % Mean Corpuscular Volume 88.7 FL Mean Corpuscular Hemoglobin 29.2 PG Mean Corpuscular Hemoglobin 33.0 % Concent Red Cell Distribution Width 15.9 % Platelet Count 262 TH/MM3 Mean Platelet Volume 6.4 FL Neutrophils (%) (Auto) 68.3 % Lymphocytes (%) (Auto) 20.8 % Monocytes (%) (Auto) 9.3 % Eosinophils (%) (Auto) 0.8 % Basophils (%) (Auto) 0.8 % Neutrophils # (Auto) 6.7 TH/MM3 Lymphocytes # (Auto) 2.0 TH/MM3 Monocytes # (Auto) 0.9 TH/MM3 Eosinophils # (Auto) 0.1 TH/MM3 Basophils # (Auto) 0.1 TH/MM3 CBC Comment DIFF FINAL Differential Comment Urine Color YELLOW Urine Turbidity CLEAR Urine pH 5.5 Urine Specific [place] 1.006 Urine Protein NEG mg/dL Urine Glucose (UA) NEG mg/dL Urine Ketones NEG mg/dL Urine Occult Blood NEG Urine Nitrite NEG Urine Bilirubin NEG Urine Urobilinogen LESS THAN 2.0 MG/DL Urine Leukocyte Esterase TRACE Urine WBC 1 /hpf Urine Squamous Epithelial <1 /hpf Cells Urine Amorphous Sediment RARE Urine Bacteria OCC /hpf Microscopic Urinalysis Comment CULT NOT INDICATED Sodium Level 134 MEQ/L Potassium Level 3.7 MEQ/L Chloride Level 94 MEQ/L Carbon Dioxide Level 33.7 MEQ/L Anion Gap 6 MEQ/L Blood Urea Nitrogen 8 MG/DL Creatinine 0.76 MG/DL Estimat Glomerular Filtration 78 ML/MIN Rate Random Glucose 108 MG/DL Calcium Level 8.9 MG/DL Total Bilirubin 0.4 MG/DL Aspartate Amino Transf 16 U/L (AST/SGOT) Alanine Aminotransferase 24 U/L (ALT/SGPT) Alkaline Phosphatase 91 U/L Total Protein 7.6 GM/DL Albumin 3.4 GM/DL Salicylates Level 2.5 MG/DL Urine Opiates Screen NEG Acetaminophen Level LESS THAN 2.0 MCG/ML Urine Barbiturates Screen NEG Urine Amphetamines Screen NEG Urine Benzodiazepines Screen NEG Urine Cocaine Screen NEG Urine Cannabinoids Screen NEG Ethyl Alcohol Level LESS THAN 3 MG/DL MDM Medical Decision Making Medical Screen Exam Complete: Yes Emergency Medical Condition: Yes Differential Diagnosis Homicidal, suicidal, malingering, schizoaffective, depression, other Narrative Course Patient was seen and examined. Labs were obtained and reviewed. Patient medically cleared for further treatment and evaluation by psych. Final disposition per psych. Diagnosis Primary Impression: Suicidal ideation Condition: Stable Israel Mendoza Feb 22, 2017 15:56
[2017-02-22 16:58] LABS: BACTERIA, URINE OCC /hpf; BLOOD, URINE NEG (NEG); COMMENT (UR) CULT NOT INDICATED; CULTURE IF INDICATED CULT NOT INDICATED; GLUCOSE,URINE NEG (NEG); KETONE, URINE NEG (NEG); NITRITE,URINE NEG (NEG); PH, URINE 5.5 (5.0-8.5); SQUAMOUS EPITHELIAL CELL URINE <1 /hpf (0-5); URINE COLOR YELLOW (YELLW/STRAW)
[2017-02-22 16:59] LABS: AUTOMATED NEUTROPHIL # 6.7 TH/MM3 (1.8-7.7); BASOPHIL # 0.1 TH/MM3 (0-0.2); BASOPHIL % 0.8 % (0.0-2.0); EOSINOPHIL # 0.1 TH/MM3 (0-0.4); EOSINOPHIL % 0.8 % (0.0-4.0); HEMATOCRIT 36.6 % (35.0-46.0); HEMO FLAGS DIFF FINAL; LYMPH % 20.8 % (9.0-44.0); MEAN CELL VOLUME 88.7 FL (80.0-100.0); MEAN CORPUSCULAR HEMOGLOBIN 29.2 PG (27.0-34.0); MONO % 9.3 % (0.0-8.0); NEUT % 68.3 % (16.0-70.0); PLATELET COUNT 262 TH/MM3 (150-450); RED BLOOD COUNT 4.12 MIL/MM3 (4.00-5.30); RED CELL DISTRIBUTION WIDTH 15.9 % (11.6-17.2); WHITE BLOOD COUNT 9.8 TH/MM3 (4.0-11.0)
[2017-02-22 17:04] LABS: AMPHETAMINE, URINE NEG (NEG); BARBITURATES, URINE NEG (NEG); COCAINE, URINE NEG (NEG)
[2017-02-22 17:12] LABS: ANION GAP 6 MEQ/L (5-15); AST (GOT) 16 U/L (15-37); BICARBONATE 33.7 MEQ/L (21.0-32.0); BLOOD UREA NITROGEN 8 MG/DL (7-18); CHLORIDE 94 MEQ/L (98-107); GLOMERULAR FILTRATION RATE 78 ML/MIN (>89); POTASSIUM 3.7 MEQ/L (3.5-5.1); SODIUM (NA) 134 MEQ/L (136-145)
[2017-02-22 17:15] LABS: ACETAMINOPHEN LESS THAN 2.0 MCG/ML (10.0-30.0); ALKALINE PHOSPHATASE 91 U/L (45-117); ALT (GPT) 24 U/L (10-53); TOTAL BILIRUBIN ADULT 0.4 MG/DL (0.2-1.0)
[2017-02-22] MEDS ORDERED: ACETAMINOPHEN 500 MG CPLT PO ONE (20:45)
[2017-02-22] MEDS ORDERED: IBUPROFEN 600 MG TAB PO ONE (22:15)
[2017-02-22 22:34] VITALS: BP 143/59; PULSE 87; RESP 20; TEMP 99; O2SAT 97
[2017-02-23 06:35] VITALS: BP 149/73; PULSE 82; RESP 16; O2SAT 95
[2017-02-23 07:30] VITALS: BP 138/77; PULSE 78; RESP 16; TEMP 97.8; O2SAT 99
== END 2017-02-23 09:29 ==
LOC: NEDAMB 14:32 → NEPB 02-23 09:29
DX: R45.851 Suicidal ideations (principal); I50.9 Heart failure, unspecified; Z79.01 Long term (current) use of anticoagulants
CPT/HCPCS: 80053; 80307; 81001; 85025; 99285

== ENCOUNTER 2017-03-23 16:45 | Inpatient (IN) | payer MEDICAID, OTHER ==
[2017-03-23 19:00] VITALS: BP 150/73; PULSE 94; RESP 20; TEMP 99; O2SAT 89
[2017-03-23] MEDS ORDERED: GLUCAGON 1 MG/ML VIAL OTHER PRN (19:30)
[2017-03-23] MEDS ORDERED: DEXTROSE 50% IN WATER 50 ML VIAL(D50) IV PUSH PRN (19:30)
[2017-03-23] MEDS ORDERED: ALUMINUM/MAGNESIUM/SIMETH 30 ML CUP PO PRN (19:30)
[2017-03-23] MEDS ORDERED: BENZTROPINE MESYLATE 2 MG/2 ML VIAL IM PRN (19:30)
[2017-03-23] MEDS ORDERED: MAGNESIUM HYDROXIDE SUSP 30 ML CUP PO PRN (19:30)
[2017-03-23] MEDS ORDERED: BENZTROPINE MESYLATE 1 MG TAB PO PRN (19:30)
[2017-03-23] MEDS ORDERED: LORazepam 2 MG/ML VIAL IM PRN (19:30)
[2017-03-23] MEDS: METOPROLOL TARTRATE 50 MG TAB PO SCH (20:16)
[2017-03-23] MEDS: INSULIN ASPART SUPPLEMENTAL SCALE SQ SCH (20:16)
[2017-03-23] MEDS: LORazepam 0.5 MG TAB PO PRN (20:18)
[2017-03-23] MEDS: diphenhydrAMINE HCL 50 MG CAP PO PRN (23:43)
[2017-03-24 06:29] VITALS: BP 130/67; PULSE 77; RESP 17; TEMP 98.1
[2017-03-24] MEDS: INSULIN ASPART SUPPLEMENTAL SCALE SQ SCH ×4 (06:38→21:00)
[2017-03-24] MEDS: PRAZOSIN HCL 5 MG CAP PO SCH ×4 (08:23→17:03)
[2017-03-24] MEDS: PREGABALIN 75 MG CAP PO SCH (08:23)
[2017-03-24] MEDS: LISINOPRIL 10 MG TAB PO SCH (08:23)
[2017-03-24] MEDS: GLIMEPIRIDE 2 MG TAB PO SCH (08:24)
[2017-03-24] MEDS: METOPROLOL TARTRATE 50 MG TAB PO SCH ×2 (08:24→20:58)
[2017-03-24] MEDS: NICOTINE 21 MG/24 HR PATCH T-DERMAL SCH (08:24)
[2017-03-24] MEDS: REMOVE OLD PATCH T-DERMAL SCH (08:26)
[2017-03-24] MEDS: LEVOTHYROXINE SODIUM 100 MCG TAB PO SCH (08:26)
[2017-03-24 08:39] LABS: AUTOMATED NEUTROPHIL # 11.4 TH/MM3 (1.8-7.7); BASOPHIL # 0.1 TH/MM3 (0-0.2); BASOPHIL % 0.4 % (0.0-2.0); EOSINOPHIL # 0.1 TH/MM3 (0-0.4); EOSINOPHIL % 0.6 % (0.0-4.0); HEMATOCRIT 36.6 % (35.0-46.0); HEMO FLAGS DIFF FINAL; LYMPH % 9.6 % (9.0-44.0); LYMPHOCYTE # 1.3 TH/MM3 (1.0-4.8); MEAN CELL VOLUME 90.6 FL (80.0-100.0); MEAN CORPUSCULAR HEMOGLOBIN 29.9 PG (27.0-34.0); MEAN CORPUSCULAR HGB CONC 33.1 % (32.0-36.0); MONO % 6.6 % (0.0-8.0); NEUT % 82.8 % (16.0-70.0); PLATELET COUNT 236 TH/MM3 (150-450); RED BLOOD COUNT 4.04 MIL/MM3 (4.00-5.30); RED CELL DISTRIBUTION WIDTH 15.9 % (11.6-17.2); WHITE BLOOD COUNT 13.8 TH/MM3 (4.0-11.0)
[2017-03-24] MEDS ORDERED: LEVOTHYROXINE SODIUM 100 MCG TAB PO SCH (09:00)
[2017-03-24] MEDS ORDERED: FUROSEMIDE 40 MG TAB PO SCH (09:00)
[2017-03-24 09:16] LABS: ALKALINE PHOSPHATASE 97 U/L (45-117); ALT (GPT) 15 U/L (10-53); ANION GAP 5 MEQ/L (5-15); AST (GOT) 10 U/L (15-37); BICARBONATE 34.8 MEQ/L (21.0-32.0); BLOOD UREA NITROGEN 10 MG/DL (7-18); CHLORIDE 100 MEQ/L (98-107); GLOMERULAR FILTRATION RATE 101 ML/MIN (>89); HDL CHOLESTEROL 37.9 MG/DL (40.0-60.0); LDL CHOLESTEROL 147 MG/DL (0-99); POTASSIUM 4.1 MEQ/L (3.5-5.1); SODIUM (NA) 140 MEQ/L (136-145); TOTAL BILIRUBIN ADULT 0.4 MG/DL (0.2-1.0)
[2017-03-24 09:58] LABS: HEMOGLOBIN A1a 1.2 %; HEMOGLOBIN Ao 84.6 %; HEMOGLOBIN F 1.1 %; HEMOGLOBIN LA1C 2.2 %
[2017-03-24] MEDS ORDERED: RESP: ALBUTEROL 1.25 MG/3 ML NEB (PRN) NEB (10:45)
--- NOTE | 2017-03-24 11:11 | PD.CONS ---
HPI Service [facility] Hospitalists Consult Requested By Russell Pink M.D. Reason for Consult Assit in the management of medical condition Primary Care Physician No Primary Care Physician Diagnoses: (1) Hypothyroid (2) CHF (congestive heart failure) (3) HTN (hypertension) (4) DM2 (diabetes mellitus, type 2) (5) Suicidal ideation (6) Major depressive disorder History of Present Illness Ms. Arvizu is 56 yo, with reported past medical history that has varied from hospitalization to hospitalization. She is currently being admitted under Urias act to the [facility] psychiatric service for depression with suicidal ideation and the Hospitalist team was consulted for medical management. Presently, Ms. Arvizu is reporting having a cold with cough, wheezing, shortness of breath. She stated the cold has been present for several days. She noted she is on oxygen at home and has not had to increase her delivery. Presently, Ms. Arvizu is endorsing history of hypothyroidism, CHF, hypertension , CHF, and COPD. She endorsed smoking history and continues to smoke "4-5 a day. She was asked about medication compliance and said she "takes everything prescribed to me." No other issues or problems were reported by Ms. Arvizu. Review of Systems Except as stated in HPI: all other systems reviewed are Neg Past Family Social History Allergies: Coded Allergies: Aspirin (Verified Allergy, Severe, Anaphylaxis, 02/22/17) Darvocet-N 100 (Verified Allergy, Severe, 02/22/17) Tramadol (Verified Allergy, Severe, 02/22/17) Gabapentin (Verified Allergy, Unknown, 02/22/17) per Discharge paperwork from [facility]. Grape (Verified Allergy, Unknown, 02/22/17) Grape Flavor - per Discharge paperwork from [facility]. Miralax (Verified Allergy, Unknown, 02/22/17) per Discharge paperwork from [facility]. Oxycodone (Verified Allergy, Unknown, 02/22/17) per Discharge paperwork from [facility]. Propoxyphene (Verified Allergy, Unknown, 02/22/17) per Discharge paperwork from [facility]. [place] (Unverified Allergy, Unknown, 02/22/17) *MDRO Multi-Drug Resistant Organism (Verified Adverse Reaction, Unknown, ) ESBL E. coli (urine) - 02/19/2017 Uncoded Allergies: Tape (Allergy, Unknown, 02/20/17) per Discharge paperwork from [facility]. Past Medical History Asthma: Yes Blood Disorders: No Anxiety: Yes Depression: Yes Cardiovascular Problems: Yes (HTN) High Cholesterol: Yes Chest Pain: Yes Congestive Heart Failure: Yes COPD: Yes Cerebrovascular Accident: Yes (CVA) Diabetes: Yes Patient Takes Glucophage: No Diminished Hearing: No Endocrine: No Gastrointestinal Disorders: No GERD: Yes Genitourinary: No Hepatitis: Yes (C) Hypertension: Yes Immune Disorder: No Implanted Vascular Access Dvce: Yes Musculoskeletal: Bilateral knee replacement Neurologic: No Psychiatric: Yes Respiratory: Yes (COPD) Immunizations Current: Yes Schizophrenia: Yes Sleep Apnea: Yes (?) Thyroid Disease: Yes Menopausal: Yes : 3 Para: 3 Tubal Ligation: Yes Past Surgical History Abdominal Surgery: Yes (CURTIS) Cholecystectomy: Yes Gynecologic Surgery: Yes Hysterectomy: Yes Joint Replacement: Yes (TOTAL KNEE REPLACEMENT -LEFT/ TOTAL KNEE REPLACEMENT - RIGHT) Oral Surgery: Yes (TEETH EXTRACTED) Reported Medications Reported Meds & Active Scripts Reported Zestril (Lisinopril) 10 Mg Tab 10 Mg PO DAILY Risperdal (Risperidone) 3 Mg Tab 3 Mg PO HS Novolog Inj (Insulin Aspart) 1,000 Unit/10 Ml Vial 1-9 Units SQ ACHS Max dose at bedtime:( )units; sugars less than 70,(0)units; sugars 150-199,(1) unit; sugars 200-249,(3) units; sugars 250-299,(5) units; sugars 300-349,(7) units; sugars greater than 349,(9) units Lopressor (Metoprolol Tartrate) 50 Mg Tab 50 Mg PO BID Levothyroxine (Levothyroxine Sodium) 100 Mcg Tab 100 Mcg PO DAILY Lamictal (Lamotrigine) 25 Mg Tab 25 Mg PO BID Glimepiride 2 Mg Tab 2 Mg PO DAILY Take with breakfast or first main meal Furosemide 40 Mg Tab 40 Mg PO DAILY Minipress (Prazosin HCl) 5 Mg Cap 5 Mg PO TID Celexa (Citalopram Hydrobromide) 40 Mg Tab 40 Mg PO DAILY Lyrica (Pregabalin) 75 Mg Cap 75 Mg PO DAILY Active Ordered Medications Current Medications Medications (Trade) Dose Ordered Sig/Vicenta Route Start Time Stop Time Status Last Admin (Ativan) 0.5 mg Q12H PRN PO 03/23/17 19:30 03/23/17 20:18 (Ativan Inj) 0.5 mg Q12H PRN IM 03/23/17 19:30 (Benadryl) 50 mg HS PRN PO 03/23/17 19:30 03/23/17 23:43 (Tylenol) 650 mg Q4H PRN PO 03/23/17 19:30 (Milk Of Magnesia Liq) 30 ml DAILY PRN PO 03/23/17 19:30 (Mag-Al Plus Susp Liq) 30 ml Q6H PRN PO 03/23/17 19:30 (Habitrol 21 Mg Patch.24 Hr) 1 patch DAILY T-DERMAL 03/24/17 09:00 03/24/17 08:24 (Cogentin) 1 mg Q12H PRN PO 03/23/17 19:30 (Cogentin Inj) 1 mg Q12H PRN IM 03/23/17 19:30 Miscellaneous Information 1 DAILY T-DERMAL 03/24/17 09:00 (D50w (Vial) Inj) 25 ml UNSCH PRN IV PUSH 03/23/17 19:30 (Glucagon Inj) 1 mg UNSCH PRN OTHER 03/23/17 19:30 (Amaryl) 2 mg DAILY PO 03/24/17 09:00 03/24/17 08:24 (Prinivil) 10 mg DAILY PO 03/24/17 09:00 03/24/17 08:23 (Lopressor) 50 mg BID PO 03/23/17 21:00 03/24/17 08:24 (Minipress) 5 mg TID PO 03/24/17 09:00 03/24/17 08:23 (Lyrica) 75 mg DAILY PO 03/24/17 09:00 03/24/17 08:23 (Synthroid) 100 mcg DAILY@0600 PO 03/24/17 09:00 03/24/17 08:26 (Lipitor) 40 mg HS PO 03/24/17 21:00 (Robitussin Dm 200-20 Mg/10 ml Liq) 10 ml Q6H PRN PO 03/24/17 10:45 (Cymbalta Dr) 20 mg BID PO 03/24/17 21:00 (Invega Er) 9 mg HS PO 03/24/17 21:00 (Lithotabs) 300 mg Q8HR PO 03/24/17 14:00 Family History Pt reported family history of diabetes. Social History Pt endorsed smoking cigarettes "4-5 /day" yet medical record indicated pt had previously reported smoking 1.5 pp/day. Pt denied personal history of alcohol and illicit/recreational drug use. Physical Exam Vital Signs Vital Signs Date Time Temp Pulse Resp B/P Pulse Ox O2 Delivery O2 Flow Rate FiO2 03/24/17 09:26 18 03/24/17 06:29 98.1 77 17 130/67 03/23/17 19:00 99.0 94 20 150/73 89 Physical Exam GENERAL: This is a morbidly obese, well-developed patient, in no apparent distress encountered on psychiatric unit with oxgen concentrator nearby ( delivering 3L). SKIN: No rashes, ecchymoses or lesions. Cool and dry. HEAD: Atraumatic. Normocephalic. No temporal or scalp tenderness. EYES: Pupils equal round and reactive. Extraocular motions intact. No scleral icterus. No injection or drainage. ENT: Nose without bleeding, purulent drainage or septal hematoma. Throat without erythema, tonsillar hypertrophy or exudate. Uvula midline. Airway patent. NECK: Trachea midline. No JVD or lymphadenopathy. Supple, nontender, no meningeal signs. CARDIOVASCULAR: Regular rate and rhythm without murmurs, gallops, or rubs. RESPIRATORY: Clear to auscultation. Breath sounds equal bilaterally. No wheezes , rales, or rhonchi. GASTROINTESTINAL: Abdomen soft, non-tender, nondistended. No hepato-splenomegaly , or palpable masses. No guarding. MUSCULOSKELETAL: Extremities without clubbing, cyanosis, or edema. No joint tenderness, effusion, or edema noted. No calf tenderness. NEUROLOGICAL: Awake and alert. Cranial nerves II through XII intact. Motor and sensory grossly within normal limits. Five out of 5 muscle strength in all muscle groups. Normal speech. Laboratory Laboratory Tests Test 03/24/17 08:17 White Blood Count 13.8 Red Blood Count 4.04 Hemoglobin 12.1 Hematocrit 36.6 Mean Corpuscular Volume 90.6 Mean Corpuscular Hemoglobin 29.9 Mean Corpuscular Hemoglobin 33.1 Concent Red Cell Distribution Width 15.9 Platelet Count 236 Mean Platelet Volume 6.5 Neutrophils (%) (Auto) 82.8 Lymphocytes (%) (Auto) 9.6 Monocytes (%) (Auto) 6.6 Eosinophils (%) (Auto) 0.6 Basophils (%) (Auto) 0.4 Neutrophils # (Auto) 11.4 Lymphocytes # (Auto) 1.3 Monocytes # (Auto) 0.9 Eosinophils # (Auto) 0.1 Basophils # (Auto) 0.1 CBC Comment DIFF FINAL Differential Comment Sodium Level 140 Potassium Level 4.1 Chloride Level 100 Carbon Dioxide Level 34.8 Anion Gap 5 Blood Urea Nitrogen 10 Creatinine 0.61 Estimat Glomerular Filtration 101 Rate Random Glucose 163 Hemoglobin A1c 5.9 Calcium Level 8.8 Total Bilirubin 0.4 Aspartate Amino Transf 10 (AST/SGOT) Alanine Aminotransferase 15 (ALT/SGPT) Alkaline Phosphatase 97 Total Protein 7.8 Albumin 3.0 Triglycerides Level 101 Cholesterol Level 205 LDL Cholesterol 147 HDL Cholesterol 37.9 Cholesterol/HDL Ratio 5.40 Thyroid Stimulating Hormone 1.310 3rd Gen Result Diagram: 03/24/17 0817 03/24/17 0817 Imaging No imaging studies noted within the past 24 hours. Assessment and Plan Assessment and Plan Hypothyroid -continue home regimen of 100 mcg.day Diabetes -Pt to be placed on sliding scale insulin. Glimepiride 2mg PO daily continued. Diabetes controlled as Ha1c is 5.9. Hyperlipidemia -Pt reports being on statin, but one is not in the medication list. Lipid panel performed and results personally reviewed. total cholesterol 205 and LDL 147. HDL noted 37.9. Pt started on Lipitor 40 mg nightly. CHF- -Holding lasix COPD -Duo neb orders PRN albuterol ordered. COUGH -Azithromycin 500 mg x 3 days. -Robitussin Hypertension: Lisinopril 10 mg daily continued Metoprolol 50 mg BID continued Hospitalist team will continue to follow. Thank you for the consultation and allowing us to participate in the care of your patient. Written by Freeman Adair PA-C, acting as scribe for Dr. Queen on 03/24/17 at 12 :52. This note was transcribed by scribe [Freeman Adair]. I, Dr. Grant Queen personally performed the history, physical exam, and medical decision making; and confirmed the accuracy of the information in the transcribed note. Authenticated by Dr. Grant Queen on 03/24/17 at 15:54. Discussed Condition With Pt, psychiatric nurse, and Dr. Queen. Freeman Adair Jr. March 24, 2017 11:10 Grant Queen MD March 24, 2017 15:55
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
[2017-03-24 12:05] VITALS: O2SAT 94
[2017-03-24] MEDS: LITHIUM CARBONATE 300 MG TAB PO SCH ×2 (14:10→22:53)
[2017-03-24] MEDS: AZITHROMYCIN 250 MG TAB PO SCH (14:10)
[2017-03-24] MEDS: ACETAMINOPHEN 325 MG TAB PO PRN (15:20)
[2017-03-24 18:20] VITALS: BP 125/60; PULSE 96; RESP 18; TEMP 97.3
[2017-03-24 20:00] VITALS: O2SAT 94
[2017-03-24] MEDS: RESP: ALBUTEROL 2.5 MG/IPRATROPIUM 0.5 MG NEB (SCH) NEB (20:00)
[2017-03-24] MEDS: PALIPERIDONE ER 3 MG TAB PO SCH (20:58)
[2017-03-24] MEDS: ATORVASTATIN 40 MG TAB PO SCH (20:59)
[2017-03-24] MEDS: DULoxetine HCl DR 20 MG CAP PO SCH (20:59)
[2017-03-24] MEDS: diphenhydrAMINE HCL 50 MG CAP PO PRN (20:59)
[2017-03-25] MEDS: LITHIUM CARBONATE 300 MG TAB PO SCH ×3 (05:41→20:39)
[2017-03-25] MEDS: LEVOTHYROXINE SODIUM 100 MCG TAB PO SCH (05:41)
[2017-03-25 06:00] VITALS: BP 159/69; PULSE 100; RESP 17; TEMP 98.2; O2SAT 98
[2017-03-25] MEDS: INSULIN ASPART SUPPLEMENTAL SCALE SQ SCH ×4 (06:12→21:00)
[2017-03-25] MEDS: ACETAMINOPHEN 325 MG TAB PO PRN (06:38)
[2017-03-25] MEDS: LORazepam 0.5 MG TAB PO PRN ×2 (06:38→21:23)
[2017-03-25] MEDS: RESP: ALBUTEROL 2.5 MG/IPRATROPIUM 0.5 MG NEB (SCH) NEB ×2 (08:00→20:00)
[2017-03-25] MEDS: METOPROLOL TARTRATE 50 MG TAB PO SCH ×2 (08:58→21:12)
[2017-03-25] MEDS: GLIMEPIRIDE 2 MG TAB PO SCH (08:58)
[2017-03-25] MEDS: PRAZOSIN HCL 5 MG CAP PO SCH ×3 (08:58→18:00)
[2017-03-25] MEDS: DULoxetine HCl DR 20 MG CAP PO SCH ×2 (08:58→20:39)
[2017-03-25] MEDS: PREGABALIN 75 MG CAP PO SCH (08:58)
[2017-03-25] MEDS: LISINOPRIL 10 MG TAB PO SCH (08:58)
[2017-03-25] MEDS: AZITHROMYCIN 250 MG TAB PO SCH (08:58)
[2017-03-25] MEDS: NICOTINE 21 MG/24 HR PATCH T-DERMAL SCH (08:59)
[2017-03-25] MEDS: REMOVE OLD PATCH T-DERMAL SCH (09:00)
--- NOTE | 2017-03-25 12:32 | HHI.PYPN ---
Subjective Remarks Patient seen and examined. Chart reviewed. Case discussed with nursing staff who reports that the patient continues to complain of voices, deprecatory in nature. Patient is noted to be highly behavioral and had a tantrum earlier today regarding her lunch. On my examination today, the patient is complaining at length still about the lunch issue, even though nursing staff has taken steps to resolve it. She wants to be discharged but wants us to place her in a nursing facility. She says that she will not accept an assisted living facility. She claims to have command auditory hallucinations of her father telling her to kill herself, although she does not appear at all internally stimulated. Continues to threaten suicide in a fairly manipulative fashion to try to get what she wants. Denies side effects from medications. No other issues noted. Review of Systems Except as stated in HPI: all other systems reviewed are Neg Objective Alert: Yes [place]: Person, Place, Date Mood: Oppositional, Other (dysphoric) Affect: Restricted Memory Intact: Comment (not formally assessed) Hallucinations: Auditory (reports command auditory hallucinations to hurt herself.) Delusions: No Delusion Type: Other (no delusions) Suicidal: Ideation (manipulative suicidal threats) Homicidal: Ideation (no homicidal ideation) Insight/Judgment Poor Remarks No motor abnormalities noted. Thought process linear. Grooming and hygiene fair. Labs Labs reviewed. Vitals/IOs Vital Signs Date Time Temp Pulse Resp B/P Pulse Ox O2 Delivery O2 Flow Rate FiO2 03/25/17 06:00 98.2 100 17 159/69 98 03/24/17 20:00 Nasal Cannula 3.00 Intake and Output 03/24/17 03/24/17 03/24/17 07:59 15:59 23:59 Intake Total 0 ml 1200 ml Balance 0 ml 1200 ml Assessment & Plan Problem List: (1) Adjustment disorder with mixed disturbance of emotions and conduct ICD Code: F43.25 Assessment & Plan Overall presentation behavioral and manipulative. Continue Cymbalta, Invega Sustenna and lithium, resumed after period of nonadherence. Continue to monitor on the inpatient psychiatric unit. Hospitalist consult input noted and appreciated. Continue other medications and care as ordered. Justification for Cont. Inpt. Monitoring for impairments in safety, so far none noted. Discharge Planning PT recommending home with PT or PT at rehab. Patient apparently does not have a home to which to return at this point. Counselor to explore placement options. Request HC Surrog/Guard Advoc?: No Russell Pink MD March 25, 2017 12:32
[2017-03-25] MEDS: guaiFENesin/DEXTROMETHORPHAN 200 MG/20 MG/10 ML CUP PO PRN ×2 (13:27→21:12)
[2017-03-25] MEDS ORDERED: FUROSEMIDE 40 MG TAB PO ONE (14:00)
[2017-03-25] MEDS ORDERED: POTASSIUM CHLORIDE 20 MEQ CONTROLLED RELEASE TAB PO ONE (14:00)
--- NOTE | 2017-03-25 14:22 | HHI.PR ---
Subjective Remarks Follow-up visit CHF, COPD, HTN, diabetes. Patient seen and examined today. Reports increasing shortness of breath especially with exertion. On continue solutions 2 L nasal cannula. States she takes it on and off. Reports occasional cough, expectorate some white to yellow sputum. Denies pain and discomfort. Denies chest pain, palpitations, headaches, dizziness. Denies fevers, chills, n/v/d. Objective Vitals Vital Signs Date Time Temp Pulse Resp B/P Pulse Ox O2 Delivery O2 Flow Rate FiO2 03/25/17 06:00 98.2 100 17 159/69 98 03/24/17 20:00 94 Nasal Cannula 3.00 03/24/17 18:20 97.3 96 18 125/60 I/O 03/24/17 03/24/17 03/24/17 03/25/17 03/25/17 03/25/17 07:00 15:00 23:00 07:00 15:00 23:00 Intake Total 0 ml 840 ml 360 ml Balance 0 ml 840 ml 360 ml Intake Oral 0 ml 840 ml 360 ml # Voids 1 3 Result Diagram: 03/24/1781603/24/1717 Objective Remarks GENERAL: This is a well-nourished, well-developed patient, in no apparent distress. SKIN: Warm and dry. HEENT: Normocephalic. Pupils equal round and reactive. Nose without bleeding. Airway patent. NECK: Trachea midline. No JVD. Supple. CARDIOVASCULAR: Regular rate and rhythm systolic murmur 2/6 murmurs, gallops, or rubs. RESPIRATORY: Diminished breath sounds. Mild Expiratory wheezes. Rhonchi evident. Symptoms currently. GASTROINTESTINAL: Abdomen soft, non-tender, nondistended. Bowel Sounds normoactive x4. : Voiding without difficulty. MUSCULOSKELETAL: Extremities without clubbing, cyanosis, bilateral lower extremity trace edema. NEUROLOGICAL: Awake and alert. Oriented to place, person. Moves all extremities , ambulates with walker use. Normal speech. A/P Problem List: (1) Hypothyroid ICD Code: E03.9 Status: Chronic (2) CHF (congestive heart failure) ICD Code: I50.9 Status: Chronic (3) HTN (hypertension) ICD Code: I10 Status: Chronic (4) DM2 (diabetes mellitus, type 2) ICD Code: E11.9 Status: Chronic (5) Suicidal ideation ICD Code: R45.851 Status: Acute (6) Major depressive disorder ICD Code: F32.9 Status: Chronic Assessment and Plan Patient is a 56-year-old female with primary medical history of COPD, CHF, diabetes, hypertension, hypothyroidism who came in as a transfer from [facility] under [facility] act secondary to depression with suicidal ideation. As per records, patient took all her [place]'s reporting she doesn't want to and was threatening to cut her throat or runny to traffic. She is now admitted to inpatient psychiatry unit for further evaluation. Consulted for medical management. CHF, systolic - Complains of increasing shortness of breath. States she is taking Lasix at home. - Lasix 40 mg by mouth 1 dose now. Potassium 20 MEQ 1 dose now. - Check BMP - Chest x-ray showed compensated cardiomegaly otherwise negative. There is no infiltrate or significant failure. - Continue O2 use COPD, bronchitis Cough - Complaints of increasing shortness of breath, cough with mucus production. Not in acute distress. - Chest x-ray showed compensated cardiomegaly otherwise negative. There is no infiltrate or significant failure. - Increase Duo nebs 3 times a day, and when necessary - Start Symbicort twice a day - Continue Azithromycin 500 mg x 3 days. - Robitussin PRN cough - Continue O2 use, PRN. Maintain O2 sat greater than 88% Hypothyroid -continue home regimen of 100 mcg.day Diabetes - Continue sliding scale insulin. - Glimepiride 2mg PO daily continued. - Diabetes controlled as Ha1c is 5.9. Hyperlipidemia -Pt reports being on statin, but one is not in the medication list. - Lipid panel performed and results personally reviewed. total cholesterol 205 and LDL 147. HDL noted 37.9. - Lipitor 40 mg nightly. Hypertension - Lisinopril 10 mg daily continued, prazosin 5 mg 3 times a day, metoprolol 50 mg twice a day - Monitor BP trend DVT prop encourage ambulation Discussed with patient, nursing, Rogelio Marques March 25, 2017 14:22
--- NOTE | 2017-03-25 14:59 | RADRPT ---
EXAM DATE/TIME: 03/25/2017 14:40 [facility] COMPARISON: No previous studies available for comparison. INDICATIONS : Cough and congestion. MEDICAL HISTORY : Hypertension. Chronic obstructive pulmonary disease. 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 Seizures.Asthma, CVA, SURGICAL HISTORY : None. ENCOUNTER: Initial ACUITY: 1 day PAIN SCORE: 0/10 LOCATION: Bilateral chest FINDINGS: The lungs are clear. The heart is minimally enlarged. The pulmonary vascularity is normal. There is n o evidence for infiltrate or failure. The portion of the bony skeleton visualized is unremarkable. CONCLUSION: Compensated cardiomegaly otherwise negative . There is no infiltrate or significant failure. Christiano Yates MD FACR Board Certified Radiologist. This report was verified electronically.
[2017-03-25] MEDS: BUDESONIDE-FORMOTEROL 160/4.5 MCG INHALER INH SCH ×2 (15:59→20:40)
[2017-03-25] MEDS: PALIPERIDONE ER 3 MG TAB PO SCH (20:39)
[2017-03-25] MEDS: ATORVASTATIN 40 MG TAB PO SCH (20:40)
[2017-03-25] MEDS: diphenhydrAMINE HCL 50 MG CAP PO PRN (21:12)
[2017-03-25 23:03] LABS: BACTERIA, URINE OCC /hpf; BLOOD, URINE NEG (NEG); COMMENT (UR) CULT NOT INDICATED; CULTURE IF INDICATED CULT NOT INDICATED; GLUCOSE,URINE NEG (NEG); KETONE, URINE NEG (NEG); MUCUS URINE FEW /lpf (OCC); NITRITE,URINE NEG (NEG); PH, URINE 7.5 (5.0-8.5); URINE COLOR YELLOW (YELLW/STRAW)
[2017-03-26] MEDS: LITHIUM CARBONATE 300 MG TAB PO SCH ×3 (05:08→21:15)
[2017-03-26] MEDS: LEVOTHYROXINE SODIUM 100 MCG TAB PO SCH (05:09)
[2017-03-26 05:39] VITALS: BP 157/66; PULSE 84; RESP 22; TEMP 98.5; O2SAT 94
[2017-03-26] MEDS: ACETAMINOPHEN 325 MG TAB PO PRN (06:27)
[2017-03-26] MEDS: guaiFENesin/DEXTROMETHORPHAN 200 MG/20 MG/10 ML CUP PO PRN ×3 (06:27→20:33)
[2017-03-26 07:56] LABS: AUTOMATED NEUTROPHIL # 7.5 TH/MM3 (1.8-7.7); BASOPHIL # 0.1 TH/MM3 (0-0.2); BASOPHIL % 0.6 % (0.0-2.0); EOSINOPHIL # 0.2 TH/MM3 (0-0.4); EOSINOPHIL % 1.8 % (0.0-4.0); HEMATOCRIT 34.7 % (35.0-46.0); HEMO FLAGS DIFF FINAL; LYMPH % 16.5 % (9.0-44.0); LYMPHOCYTE # 1.7 TH/MM3 (1.0-4.8); MEAN CELL VOLUME 90.4 FL (80.0-100.0); MEAN CORPUSCULAR HGB CONC 33.2 % (32.0-36.0); MONO % 8.5 % (0.0-8.0); NEUT % 72.6 % (16.0-70.0); PLATELET COUNT 234 TH/MM3 (150-450); RED BLOOD COUNT 3.83 MIL/MM3 (4.00-5.30); RED CELL DISTRIBUTION WIDTH 15.7 % (11.6-17.2); WHITE BLOOD COUNT 10.4 TH/MM3 (4.0-11.0)
[2017-03-26 08:45] LABS: ALKALINE PHOSPHATASE 87 U/L (45-117); ALT (GPT) 15 U/L (10-53); ANION GAP 6 MEQ/L (5-15); AST (GOT) 11 U/L (15-37); BICARBONATE 34.2 MEQ/L (21.0-32.0); BLOOD UREA NITROGEN 13 MG/DL (7-18); CHLORIDE 99 MEQ/L (98-107); GLOMERULAR FILTRATION RATE 103 ML/MIN (>89); POTASSIUM 3.8 MEQ/L (3.5-5.1); SODIUM (NA) 139 MEQ/L (136-145); TOTAL BILIRUBIN ADULT 0.4 MG/DL (0.2-1.0)
[2017-03-26] MEDS: PREGABALIN 75 MG CAP PO SCH (09:00)
[2017-03-26] MEDS: REMOVE OLD PATCH T-DERMAL SCH (09:00)
[2017-03-26] MEDS: NICOTINE 21 MG/24 HR PATCH T-DERMAL SCH (09:00)
[2017-03-26] MEDS: BUDESONIDE-FORMOTEROL 160/4.5 MCG INHALER INH SCH ×2 (09:00→20:15)
[2017-03-26] MEDS: GLIMEPIRIDE 2 MG TAB PO SCH (09:03)
[2017-03-26] MEDS: LISINOPRIL 10 MG TAB PO SCH (09:03)
[2017-03-26] MEDS: DULoxetine HCl DR 20 MG CAP PO SCH (09:03)
[2017-03-26] MEDS: PRAZOSIN HCL 5 MG CAP PO SCH ×3 (09:03→17:20)
[2017-03-26] MEDS: METOPROLOL TARTRATE 50 MG TAB PO SCH ×2 (09:03→20:16)
[2017-03-26] MEDS: AZITHROMYCIN 250 MG TAB PO SCH (09:03)
[2017-03-26] MEDS: RESP: ALBUTEROL 2.5 MG/IPRATROPIUM 0.5 MG NEB (SCH) NEB ×3 (09:10→20:25)
[2017-03-26] MEDS: INSULIN ASPART SUPPLEMENTAL SCALE SQ SCH ×3 (11:00→20:11)
--- NOTE | 2017-03-26 12:14 | HHI.PYPN ---
Subjective Remarks Patient seen in dayroom with nurse Oscar, patient sitting in Jenise chair with nasal oxygen. Chart review. Patient did no acute distress. No complaints of a mild sore throat. She also states the auditory hallucinations persist that in the past she had done fairly well on Haldol or Prolixin decanoate. At the present time patient not in [place] extended release 9 mg at at bedtime without problems. We'll increase that to 6 mg twice a day. Will increase her Cymbalta to 30 mg twice a day. Check lithium level over in the a.m. Patient states she [facility] a [facility]. That she had lived in various nursing homes and [place] and another [facility] Review of Systems Except as stated in HPI: all other systems reviewed are Neg Objective Alert: Yes [place]: Person, Place, Date Mood: Oppositional, Other (dysphoric) Affect: Restricted Memory Intact: Comment (not formally assessed) Hallucinations: Auditory (reports command auditory hallucinations to hurt herself.) Delusions: No Delusion Type: Other (no delusions) Suicidal: Ideation (manipulative suicidal threats) Homicidal: Ideation (no homicidal ideation) Insight/Judgment Very poor Labs Test 03/25/17 03/26/17 21:38 07:02 Urine Color YELLOW Urine Turbidity CLEAR Urine pH 7.5 Urine Specific [place] 1.012 Urine Protein NEG mg/dL Urine Glucose (UA) NEG mg/dL Urine Ketones NEG mg/dL Urine Occult Blood NEG Urine Nitrite NEG Urine Bilirubin NEG Urine Urobilinogen LESS THAN 2.0 MG/DL Urine Leukocyte Esterase NEG Urine RBC LESS THAN 1 /hpf Urine WBC LESS THAN 1 /hpf Urine Bacteria OCC /hpf Urine Mucus FEW /lpf Microscopic Urinalysis Comment CULT NOT INDICATED White Blood Count 10.4 TH/MM3 Red Blood Count 3.83 MIL/MM3 Hemoglobin 11.5 GM/DL Hematocrit 34.7 % Mean Corpuscular Volume 90.4 FL Mean Corpuscular Hemoglobin 30.0 PG Mean Corpuscular Hemoglobin 33.2 % Concent Red Cell Distribution Width 15.7 % Platelet Count 234 TH/MM3 Mean Platelet Volume 7.0 FL Neutrophils (%) (Auto) 72.6 % Lymphocytes (%) (Auto) 16.5 % Monocytes (%) (Auto) 8.5 % Eosinophils (%) (Auto) 1.8 % Basophils (%) (Auto) 0.6 % Neutrophils # (Auto) 7.5 TH/MM3 Lymphocytes # (Auto) 1.7 TH/MM3 Monocytes # (Auto) 0.9 TH/MM3 Eosinophils # (Auto) 0.2 TH/MM3 Basophils # (Auto) 0.1 TH/MM3 CBC Comment DIFF FINAL Differential Comment Sodium Level 139 MEQ/L Potassium Level 3.8 MEQ/L Chloride Level 99 MEQ/L Carbon Dioxide Level 34.2 MEQ/L Anion Gap 6 MEQ/L Blood Urea Nitrogen 13 MG/DL Creatinine 0.60 MG/DL Estimat Glomerular Filtration 103 ML/MIN Rate Random Glucose 137 MG/DL Calcium Level 8.7 MG/DL Total Bilirubin 0.4 MG/DL Aspartate Amino Transf 11 U/L (AST/SGOT) Alanine Aminotransferase 15 U/L (ALT/SGPT) Alkaline Phosphatase 87 U/L Total Protein 7.7 GM/DL Albumin 3.0 GM/DL Vitals/IOs Vital Signs Date Time Temp Pulse Resp B/P Pulse Ox O2 Delivery O2 Flow Rate FiO2 03/26/17 09:13 Nasal Cannula 2.00 03/26/17 05:39 98.5 84 22 157/66 94 03/26/17 00:00 21 Intake and Output 03/25/17 03/25/17 03/26/17 08:00 16:00 00:00 Intake Total 0 ml 120 ml 720 ml Output Total 30 ml Balance 0 ml 90 ml 720 ml Assessment & Plan Problem List: (1) Adjustment disorder with mixed disturbance of emotions and conduct ICD Code: F43.25 Assessment & Plan Estimated LOS: days patient states continued auditory hallucinations and depressed mood C medication adjustments above. Will also check lithium level in a.m. Justification for Cont. Inpt. At this time patient will decompensate if placed in the lower level of care Discharge Planning To be determined Request HC Surrog/Guard Advoc?: No Zander Alvarez MD March 26, 2017 12:14
--- NOTE | 2017-03-26 16:09 | HHI.PR ---
Subjective Remarks Follow-up visit CHF, COPD, HTN, diabetes. Patient seen and examined today. Reports having sore throat. Denies increased coughing, denies increased shortness of breath or dyspnea. Reports of difficulty swallowing secondary to sore throat. Otherwise, denies chest pain, palpitations, headaches, dizziness. Denies fevers, chills, n/v/d. Denies hematuria, dysuria. Objective Vitals Vital Signs Date Time Temp Pulse Resp B/P Pulse Ox O2 Delivery O2 Flow Rate FiO2 03/26/17 09:13 Nasal Cannula 2.00 03/26/17 05:39 98.5 84 22 157/66 94 03/26/17 00:00 21 I/O 03/25/17 03/25/17 03/25/17 03/26/17 03/26/17 03/26/17 07:00 15:00 23:00 07:00 15:00 23:00 Intake Total 360 ml 120 ml 720 ml Output Total 30 ml Balance 360 ml 90 ml 720 ml Intake Oral 360 ml 120 ml 480 ml Oral Supplement 240 ml Output Urine Total 30 ml # Voids 3 2 3 Result Diagram: 03/26/17 0702 03/26/17 0702 Imaging Last Impressions Chest X-Ray 03/25/17 0000 Signed Impressions: Service Date/Time: Saturday, March 25, 2017 14:40 - CONCLUSION: Compensated cardiomegaly otherwise negative . There is no infiltrate or significant failure. Christiano Yates MD FACR Objective Remarks GENERAL: This is a well-nourished, well-developed patient, in no apparent distress. SKIN: Warm and dry. HEENT: Normocephalic. Pupils equal round and reactive. Nose without bleeding. Airway patent. Oral mucosa dry. Throat without erythema noted. NECK: Trachea midline. No JVD. Supple. CARDIOVASCULAR: Regular rate and rhythm systolic murmur 2/6 murmurs, gallops, or rubs. RESPIRATORY: Diminished breath sounds. Mild Expiratory wheezes. Rhonchi evident. Symptoms currently. GASTROINTESTINAL: Abdomen soft, non-tender, nondistended. Bowel Sounds normoactive x4. : Voiding without difficulty. MUSCULOSKELETAL: Extremities without clubbing, cyanosis, bilateral lower extremity trace edema. NEUROLOGICAL: Awake and alert. Oriented to place, person. Moves all extremities , ambulates with walker use. Normal speech. A/P Problem List: (1) Hypothyroid ICD Code: E03.9 Status: Chronic (2) CHF (congestive heart failure) ICD Code: I50.9 Status: Chronic (3) HTN (hypertension) ICD Code: I10 Status: Chronic (4) DM2 (diabetes mellitus, type 2) ICD Code: E11.9 Status: Chronic (5) Suicidal ideation ICD Code: R45.851 Status: Acute (6) Major depressive disorder ICD Code: F32.9 Status: Chronic Assessment and Plan Patient is a 56-year-old female with primary medical history of COPD, CHF, diabetes, hypertension, hypothyroidism who came in as a transfer from [facility] under [facility]as act secondary to depression with suicidal ideation. As per records, patient took all her [place]'s reporting she doesn't want to and was threatening to cut her throat or runny to traffic. She is now admitted to inpatient psychiatry unit for further evaluation. Consulted for medical management. CHF, systolic - Complains of increasing shortness of breath. States she is taking Lasix at home. - Lasix 40 mg by mouth 1 dose now. Potassium 20 MEQ 1 dose now. - Chest x-ray showed compensated cardiomegaly otherwise negative. There is no infiltrate or significant failure. - Continue O2 use - Restart Lasix 20 mg, continue with metoprolol, lisinopril. COPD, bronchitis Cough - Complaints of increasing shortness of breath, cough with mucus production. Not in acute distress. - Chest x-ray showed compensated cardiomegaly otherwise negative. There is no infiltrate or significant failure. - Increase Duo nebs 3 times a day, and when necessary - Symbicort twice a day. Encouraged to gargle every use. - Azithromycin 500 mg x 3 days. - Robitussin PRN cough - Continue O2 use, PRN. Maintain O2 sat greater than 88% Sore throat - Submandibular lymphadenopathy - May use lozenges - Monitor swallowing. If continues to have difficulty with swallowing we'll consult speech therapy for evaluation. Hypothyroid -continue home regimen of 100 mcg.day Diabetes - Continue sliding scale insulin. - Glimepiride 2mg PO daily continued. - Diabetes controlled as Ha1c is 5.9. Hyperlipidemia -Pt reports being on statin, but one is not in the medication list. - Lipid panel performed and results personally reviewed. total cholesterol 205 and LDL 147. HDL noted 37.9. - Lipitor 40 mg nightly. Hypertension uncontrolled - Lisinopril 10 mg daily continued, prazosin 5 mg 3 times a day, metoprolol 50 mg twice a day - Elevated BP, will restart Lasix monitor BMP - Monitor BP trend DVT prop encourage ambulation Discussed with patient, nursing Rogelio Musa March 26, 2017 16:08
[2017-03-26 20:00] VITALS: BP 141/72; PULSE 91; RESP 23
[2017-03-26] MEDS: DULoxetine HCl DR 30 MG CAP PO SCH (20:15)
[2017-03-26] MEDS: ATORVASTATIN 40 MG TAB PO SCH (20:16)
[2017-03-26] MEDS: PALIPERIDONE ER 3 MG TAB PO SCH (20:17)
[2017-03-26] MEDS ORDERED: LISINOPRIL 10 MG TAB PO SCH (21:00)
[2017-03-26] MEDS: diphenhydrAMINE HCL 50 MG CAP PO PRN (21:15)
[2017-03-26] MEDS: LORazepam 0.5 MG TAB PO PRN (21:15)
[2017-03-27 05:55] VITALS: BP 154/86; PULSE 84; RESP 18; TEMP 98.3
[2017-03-27] MEDS: guaiFENesin/DEXTROMETHORPHAN 200 MG/20 MG/10 ML CUP PO PRN (06:01)
[2017-03-27] MEDS: LITHIUM CARBONATE 300 MG TAB PO SCH ×3 (06:01→21:35)
[2017-03-27] MEDS: LEVOTHYROXINE SODIUM 100 MCG TAB PO SCH (06:01)
[2017-03-27] MEDS: INSULIN ASPART SUPPLEMENTAL SCALE SQ SCH ×4 (06:18→21:00)
[2017-03-27] MEDS: RESP: ALBUTEROL 2.5 MG/IPRATROPIUM 0.5 MG NEB (SCH) NEB ×3 (08:00→19:25)
[2017-03-27 08:09] VITALS: O2SAT 92
[2017-03-27] MEDS: PALIPERIDONE ER 6 MG TAB PO SCH ×2 (09:00→21:00)
[2017-03-27] MEDS: REMOVE OLD PATCH T-DERMAL SCH (09:00)
[2017-03-27] MEDS: LISINOPRIL 10 MG TAB PO SCH ×2 (09:00→21:35)
[2017-03-27] MEDS: AZITHROMYCIN 250 MG TAB PO SCH (09:00)
[2017-03-27] MEDS: NICOTINE 21 MG/24 HR PATCH T-DERMAL SCH (09:00)
[2017-03-27] MEDS: GLIMEPIRIDE 2 MG TAB PO SCH (09:00)
[2017-03-27] MEDS: BUDESONIDE-FORMOTEROL 160/4.5 MCG INHALER INH SCH ×2 (09:00→21:35)
[2017-03-27] MEDS: PREGABALIN 75 MG CAP PO SCH (09:01)
[2017-03-27] MEDS: PRAZOSIN HCL 5 MG CAP PO SCH ×3 (09:01→17:01)
[2017-03-27] MEDS: LORazepam 0.5 MG TAB PO PRN (09:11)
[2017-03-27] MEDS: FUROSEMIDE 20 MG TAB PO SCH (09:11)
[2017-03-27] MEDS: DULoxetine HCl DR 30 MG CAP PO SCH ×2 (09:12→21:35)
[2017-03-27] MEDS: METOPROLOL TARTRATE 50 MG TAB PO SCH ×2 (09:14→21:35)
--- NOTE | 2017-03-27 15:03 | HHI.PYPN ---
Subjective Remarks Patient seen in day room with nurse Juliann, chart review, patient no significant behavioral problems though at time she appears to be manipulating. She has been compliant with the medications. Though staff states she has not shown much initiative and try to keep her personal hygiene she has been incontinent of both urine and stool. She does denies suicidality at this time For now continue treatment Review of Systems Except as stated in HPI: all other systems reviewed are Neg Objective Alert: Yes [place]: Person, Place, Date Mood: Oppositional, Other (dysphoric) Affect: Restricted Memory Intact: Comment (not formally assessed) Hallucinations: Auditory (reports command auditory hallucinations to hurt herself.) Delusions: No Delusion Type: Other (no delusions) Suicidal: Ideation (manipulative suicidal threats) Homicidal: Ideation (no homicidal ideation) Insight/Judgment Very poor Labs Test 03/27/17 05:55 [place] Level 0.6 MEQ/L Vitals/IOs Vital Signs Date Time Temp Pulse Resp B/P Pulse Ox O2 Delivery O2 Flow Rate FiO2 03/27/17 08:09 92 Nasal Cannula 2.00 03/27/17 05:55 98.3 84 18 154/86 03/26/17 00:00 21 Intake and Output 03/26/17 03/26/17 03/26/17 07:59 15:59 23:59 Intake Total 720 ml 360 ml Balance 720 ml 360 ml Assessment & Plan Problem List: (1) Adjustment disorder with mixed disturbance of emotions and conduct ICD Code: F43.25 Assessment & Plan Estimated LOS: days patient continues perhaps somewhat depressed but quite needy needing much interventions and assistance by staff showing very little initiative in self-care Justification for Cont. Inpt. At this time patient will decompensate with placed in a lower level of care Discharge Planning To be determined Request HC Surrog/Guard Advoc?: No Zander Alvarez MD March 27, 2017 15:03
[2017-03-27] MEDS ORDERED: LISINOPRIL 10 MG TAB PO SCH (16:00)
[2017-03-27 17:20] VITALS: BP 154/86; PULSE 84; RESP 18; TEMP 98.3; O2SAT 92
[2017-03-27 19:35] VITALS: O2SAT 94
[2017-03-27] MEDS: ATORVASTATIN 40 MG TAB PO SCH (21:35)
[2017-03-28 05:33] VITALS: BP 132/63; PULSE 84; RESP 18; TEMP 98.6
[2017-03-28 06:00] VITALS: BP 132/63; PULSE 84; RESP 18; TEMP 98.6; O2SAT 99
[2017-03-28] MEDS: LEVOTHYROXINE SODIUM 100 MCG TAB PO SCH (06:36)
[2017-03-28] MEDS: INSULIN ASPART SUPPLEMENTAL SCALE SQ SCH ×4 (06:37→21:00)
[2017-03-28] MEDS: LITHIUM CARBONATE 300 MG TAB PO SCH ×3 (06:37→21:42)
[2017-03-28] MEDS: BUDESONIDE-FORMOTEROL 160/4.5 MCG INHALER INH SCH ×2 (09:00→21:00)
[2017-03-28] MEDS: REMOVE OLD PATCH T-DERMAL SCH (09:00)
[2017-03-28] MEDS: METOPROLOL TARTRATE 50 MG TAB PO SCH ×2 (09:00→21:00)
[2017-03-28] MEDS: PALIPERIDONE ER 6 MG TAB PO SCH (09:00)
[2017-03-28 09:25] VITALS: O2SAT 96
[2017-03-28] MEDS: RESP: ALBUTEROL 2.5 MG/IPRATROPIUM 0.5 MG NEB (SCH) NEB ×2 (09:25→14:00)
[2017-03-28] MEDS: FUROSEMIDE 20 MG TAB PO SCH (09:46)
[2017-03-28] MEDS: NICOTINE 21 MG/24 HR PATCH T-DERMAL SCH (09:46)
[2017-03-28] MEDS: PREGABALIN 75 MG CAP PO SCH (09:47)
[2017-03-28] MEDS: LISINOPRIL 10 MG TAB PO SCH ×2 (09:47→21:00)
[2017-03-28] MEDS: GLIMEPIRIDE 2 MG TAB PO SCH (09:47)
[2017-03-28] MEDS: PRAZOSIN HCL 5 MG CAP PO SCH ×3 (09:47→18:00)
[2017-03-28] MEDS: DULoxetine HCl DR 30 MG CAP PO SCH ×2 (09:47→21:00)
[2017-03-28] MEDS: ACETAMINOPHEN 325 MG TAB PO PRN (09:54)
[2017-03-28] MEDS: guaiFENesin/DEXTROMETHORPHAN 200 MG/20 MG/10 ML CUP PO PRN (09:54)
--- NOTE | 2017-03-28 13:41 | HHI.PR ---
Subjective Remarks Follow-up visit CHF, COPD, HTN, diabetes. Patient seen and examined today. Reports she doesn't like how her psychiatric meds was making her feel. Discussed with patient that she should be brought out to psychiatry doctor. Complains of generalized weakness. Otherwise, continues to be on 2 L nasal cannula, denies cough, wheezing, worsening shortness of breath or dyspnea. Denies pain and discomfort. Denies chest pain, palpitations, headaches, dizziness. Denies fevers, chills, n/v/d. Objective Vitals Vital Signs Date Time Temp Pulse Resp B/P Pulse Ox O2 Delivery O2 Flow Rate FiO2 03/28/17 06:00 98.6 84 18 132/63 99 03/28/17 05:33 98.6 84 18 132/63 03/27/17 19:35 94 Nasal Cannula 2.00 03/27/17 17:20 98.3 84 18 154/86 92 I/O 03/27/17 03/27/17 03/27/17 03/28/17 03/28/17 03/28/17 06:59 14:59 22:59 06:59 14:59 22:59 Intake Total 240 ml 1200 ml 120 ml Output Total 2 ml Balance 240 ml 1198 ml 120 ml Intake Oral 240 ml 1200 ml 120 ml Output Urine Total 2 ml # Voids 1 3 # Bowel Movements 1 1 Result Diagram: 03/26/17 0702 03/26/17 0702 Imaging Last Impressions Chest X-Ray 03/25/17 0000 Signed Impressions: Service Date/Time: Saturday, March 25, 2017 14:40 - CONCLUSION: Compensated cardiomegaly otherwise negative . There is no infiltrate or significant failure. Christiano Yates MD FACR Objective Remarks GENERAL: This is a well-nourished, well-developed patient, in no apparent distress. SKIN: Warm and dry. HEENT: Normocephalic. Pupils equal round and reactive. Nose without bleeding. Airway patent. Oral mucosa dry. Throat without erythema noted. NECK: Trachea midline. No JVD. Supple. CARDIOVASCULAR: Regular rate and rhythm systolic murmur 2/6 murmurs, gallops, or rubs. RESPIRATORY: Diminished breath sounds. No wheezes, rhonchi. GASTROINTESTINAL: Abdomen soft, non-tender, nondistended. Bowel Sounds normoactive x4. : Voiding without difficulty. MUSCULOSKELETAL: Extremities without clubbing, cyanosis, bilateral lower extremity trace edema. NEUROLOGICAL: Awake and alert. Oriented to place, person. Moves all extremities , ambulates with walker use. Normal speech. A/P Problem List: (1) Hypothyroid ICD Code: E03.9 Status: Chronic (2) CHF (congestive heart failure) ICD Code: I50.9 Status: Chronic (3) HTN (hypertension) ICD Code: I10 Status: Chronic (4) DM2 (diabetes mellitus, type 2) ICD Code: E11.9 Status: Chronic (5) Suicidal ideation ICD Code: R45.851 Status: Acute (6) Major depressive disorder ICD Code: F32.9 Status: Chronic Assessment and Plan Patient is a 56-year-old female with primary medical history of COPD, CHF, diabetes, hypertension, hypothyroidism who came in as a transfer from [facility] under [facility]as act secondary to depression with suicidal ideation. As per records, patient took all her [place]'s reporting she doesn't want to and was threatening to cut her throat or runny to traffic. She is now admitted to inpatient psychiatry unit for further evaluation. Consulted for medical management. CHF, systolic - Complains of increasing shortness of breath. States she is taking Lasix at home. - Lasix 40 mg by mouth 1 dose now. Potassium 20 MEQ 1 dose now. - Chest x-ray showed compensated cardiomegaly otherwise negative. There is no infiltrate or significant failure. - Continue O2 use - On Lasix 20 mg, continue with metoprolol, lisinopril. COPD, bronchitis Cough - Complaints of increasing shortness of breath, cough with mucus production. Not in acute distress. - Chest x-ray showed compensated cardiomegaly otherwise negative. There is no infiltrate or significant failure. - Increase Duo nebs 3 times a day, and when necessary - Symbicort twice a day. Encouraged to gargle every use. - Azithromycin 500 mg x 3 days. - Robitussin PRN cough - Continue O2 use, PRN. Maintain O2 sat greater than 88% Sore throat - Submandibular lymphadenopathy - May use lozenges - Monitor swallowing. If continues to have difficulty with swallowing we'll consult speech therapy for evaluation. Hypothyroid -continue home regimen of 100 mcg.day Diabetes - Continue sliding scale insulin. - Glimepiride 2mg PO daily continued. - Diabetes controlled as Ha1c is 5.9. Hyperlipidemia -Pt reports being on statin, but one is not in the medication list. - Lipid panel performed and results personally reviewed. total cholesterol 205 and LDL 147. HDL noted 37.9. - Lipitor 40 mg nightly. Hypertension uncontrolled - Lisinopril 10 mg daily continued, prazosin 5 mg 3 times a day, metoprolol 50 mg twice a day - Elevated BP, on Lasix - Increase lisinopril twice a day. - Improved - Monitor BP trend Generalized weakness - PT eval and treat DVT prop encourage ambulation Discussed with patient, nursing Stable from Hospitalist standpoint. We will sign off. Reconsult as needed. Rogelio Musa March 28, 2017 13:41 Charmaine Dorsey MD March 28, 2017 14:08
--- NOTE | 2017-03-28 14:29 | HHI.PYPN ---
Subjective Remarks Patient seen in her room with nurse Kaylynn, patient having history therapy treatment at this time patient complains of some weak legs states she feels that is caused by her in day and refuses to take it. She states she has done well with Prolixin. We'll start Prolixin at 5 mg by mouth twice a day she tolerates that well over few days will also add Prolixin decanoate Review of Systems Except as stated in HPI: all other systems reviewed are Neg Objective Alert: Yes [place]: Person, Place, Date Mood: Oppositional, Other (dysphoric) Affect: Restricted Memory Intact: Comment (not formally assessed) Hallucinations: Auditory (reports command auditory hallucinations to hurt herself.) Delusions: No Delusion Type: Other (no delusions) Suicidal: Ideation (manipulative suicidal threats) Homicidal: Ideation (no homicidal ideation) Insight/Judgment Poor Vitals/IOs Vital Signs Date Time Temp Pulse Resp B/P Pulse Ox O2 Delivery O2 Flow Rate FiO2 03/28/17 06:00 98.6 84 18 132/63 99 03/27/17 19:35 Nasal Cannula 2.00 03/26/17 00:00 21 Intake and Output 03/27/17 03/27/17 03/28/17 08:00 16:00 00:00 Intake Total 240 ml 1200 ml Output Total 2 ml Balance 240 ml 1198 ml Assessment & Plan Problem List: (1) Adjustment disorder with mixed disturbance of emotions and conduct ICD Code: F43.25 Assessment & Plan Estimated LOS: days patient continues irritable somewhat paranoid and manipulative. She medication adjustments above Justification for Cont. Inpt. At this time patient will decompensate if placed in a lower level of care Discharge Planning To be determined Request HC Surrog/Guard Advoc?: No Zander Alvarez MD March 28, 2017 14:29
[2017-03-28] MEDS: ATORVASTATIN 40 MG TAB PO SCH (21:00)
[2017-03-28 23:11] VITALS: O2SAT 92
[2017-03-29] MEDS: LITHIUM CARBONATE 300 MG TAB PO SCH ×4 (06:13→21:22)
[2017-03-29] MEDS: LEVOTHYROXINE SODIUM 100 MCG TAB PO SCH (06:13)
[2017-03-29] MEDS: INSULIN ASPART SUPPLEMENTAL SCALE SQ SCH ×4 (06:17→21:00)
[2017-03-29 06:36] VITALS: BP 174/68; PULSE 108; RESP 16; TEMP 97.7; O2SAT 92
[2017-03-29] MEDS: BUDESONIDE-FORMOTEROL 160/4.5 MCG INHALER INH SCH ×2 (09:00→21:00)
[2017-03-29] MEDS: NICOTINE 21 MG/24 HR PATCH T-DERMAL SCH (09:00)
[2017-03-29] MEDS: REMOVE OLD PATCH T-DERMAL SCH (09:00)
[2017-03-29 09:30] VITALS: O2SAT 94
[2017-03-29] MEDS: RESP: ALBUTEROL 2.5 MG/IPRATROPIUM 0.5 MG NEB (SCH) NEB ×2 (09:30→13:54)
[2017-03-29] MEDS: LISINOPRIL 10 MG TAB PO SCH ×2 (10:27→21:22)
[2017-03-29] MEDS: GLIMEPIRIDE 2 MG TAB PO SCH (10:28)
[2017-03-29] MEDS: PRAZOSIN HCL 5 MG CAP PO SCH ×3 (10:28→17:24)
[2017-03-29] MEDS: PREGABALIN 75 MG CAP PO SCH (10:28)
[2017-03-29] MEDS: DULoxetine HCl DR 30 MG CAP PO SCH ×2 (10:28→21:22)
[2017-03-29] MEDS: FUROSEMIDE 20 MG TAB PO SCH (10:28)
[2017-03-29] MEDS: METOPROLOL TARTRATE 50 MG TAB PO SCH ×2 (10:29→21:22)
--- NOTE | 2017-03-29 12:00 | HHI.PYPN ---
Subjective Remarks Patient seen in day room with nurse Juliann, patient calm pleasant with me watching TV in the day room. Compliant medications. States that shakes have diminished, she had a small smile, with somewhat improved eye contact. She did ask about placement issues we told her that is continuing at the present time. For now continue treatment Review of Systems Except as stated in HPI: all other systems reviewed are Neg Objective Alert: Yes [place]: Person, Place, Date Mood: Oppositional, Other (dysphoric) Affect: Restricted Memory Intact: Comment (not formally assessed) Hallucinations: Auditory (reports command auditory hallucinations to hurt herself.) Delusions: No Delusion Type: Other (no delusions) Suicidal: Ideation (manipulative suicidal threats) Homicidal: Ideation (no homicidal ideation) Insight/Judgment Poor Vitals/IOs Vital Signs Date Time Temp Pulse Resp B/P Pulse Ox O2 Delivery O2 Flow Rate FiO2 03/29/17 09:30 94 Nasal Cannula 2.00 03/29/17 06:36 97.7 108 16 174/68 03/26/17 00:00 21 Intake and Output 03/28/17 03/28/17 03/28/17 07:59 15:59 23:59 Intake Total 120 ml 240 ml 240 ml Balance 120 ml 240 ml 240 ml Assessment & Plan Problem List: (1) Adjustment disorder with mixed disturbance of emotions and conduct ICD Code: F43.25 Assessment & Plan Estimated LOS: days patient continues somewhat manipulative irritable at times with staff, though pleasant with me at this time, compliant medications, continues to need much intervention by staff with hygiene ADLs Justification for Cont. Inpt. At this time patient will decompensate if placed in lower level of care Discharge Planning To be determined Request HC Surrog/Guard Advoc?: No Zander Alvarez MD March 29, 2017 11:59
[2017-03-29 18:20] VITALS: BP 125/60; PULSE 75; RESP 18; TEMP 99
[2017-03-29 19:37] VITALS: O2SAT 90
[2017-03-29] MEDS: ACETAMINOPHEN 325 MG TAB PO PRN (21:22)
[2017-03-29] MEDS: ATORVASTATIN 40 MG TAB PO SCH (21:23)
[2017-03-29] MEDS: guaiFENesin/DEXTROMETHORPHAN 200 MG/20 MG/10 ML CUP PO PRN (21:48)
[2017-03-30] MEDS: LITHIUM CARBONATE 300 MG TAB PO SCH ×3 (04:54→22:36)
[2017-03-30] MEDS: LEVOTHYROXINE SODIUM 100 MCG TAB PO SCH (04:54)
[2017-03-30] MEDS: ACETAMINOPHEN 325 MG TAB PO PRN (04:55)
[2017-03-30] MEDS: guaiFENesin/DEXTROMETHORPHAN 200 MG/20 MG/10 ML CUP PO PRN ×2 (05:49→22:38)
[2017-03-30] MEDS: INSULIN ASPART SUPPLEMENTAL SCALE SQ SCH ×4 (06:01→21:00)
[2017-03-30 06:21] VITALS: BP 146/64; PULSE 74; RESP 17; TEMP 98.4; O2SAT 93
[2017-03-30 07:27] VITALS: O2SAT 93
[2017-03-30] MEDS: REMOVE OLD PATCH T-DERMAL SCH (09:00)
[2017-03-30] MEDS: NICOTINE 21 MG/24 HR PATCH T-DERMAL SCH (09:00)
[2017-03-30] MEDS: BUDESONIDE-FORMOTEROL 160/4.5 MCG INHALER INH SCH ×2 (09:00→21:00)
[2017-03-30] MEDS: PREGABALIN 75 MG CAP PO SCH (09:00)
[2017-03-30] MEDS: METOPROLOL TARTRATE 50 MG TAB PO SCH ×2 (09:02→22:37)
[2017-03-30] MEDS: GLIMEPIRIDE 2 MG TAB PO SCH (09:02)
[2017-03-30] MEDS: PRAZOSIN HCL 5 MG CAP PO SCH ×3 (09:02→18:00)
[2017-03-30] MEDS: LISINOPRIL 10 MG TAB PO SCH ×2 (09:03→22:37)
[2017-03-30] MEDS: FUROSEMIDE 20 MG TAB PO SCH (09:03)
[2017-03-30] MEDS: DULoxetine HCl DR 30 MG CAP PO SCH ×2 (09:03→22:37)
--- NOTE | 2017-03-30 09:30 | HHI.PYPN ---
Subjective Remarks Patient seen and examined with nurse in weekend coverage. Chart reviewed. Case discussed with nursing staff reports that the patient continues to intermittently refuse meds. Presentation remains fairly behavioral. On my examination today, patient engages in some staff splitting. Denies SI/HI/AVH. She continues to desire placement in LONGTERM/[facility], and I did suggest to the patient that good medication compliance is likely a prerequisite for successful placement. Denies side effects from medications. Review of Systems ROS Limitations: Poor Historian Except as stated in HPI: all other systems reviewed are Neg Objective Alert: Yes [place]: Person, Place, Date Mood: Oppositional Affect: Blunted Memory Intact: Comment (not formally assessed) Hallucinations: Other (denies any AVH) Delusions: No Delusion Type: Other (no evident delusions) Suicidal: Ideation (denies SI) Homicidal: Ideation (denies HI) Insight/Judgment Poor Remarks No motor abnormalities noted. Thought process linear. Labs Labs reviewed. Vitals/IOs Vital Signs Date Time Temp Pulse Resp B/P Pulse Ox O2 Delivery O2 Flow Rate FiO2 03/30/17 07:27 93 Nasal Cannula 2.00 03/30/17 06:21 98.4 74 17 146/64 Intake and Output 03/29/17 03/29/17 03/30/17 08:00 16:00 00:00 Intake Total 840 ml 0 ml 960 ml Balance 840 ml 0 ml 960 ml Assessment & Plan Problem List: (1) Adjustment disorder with mixed disturbance of emotions and conduct ICD Code: F43.25 Assessment & Plan Continue current psychotropics as ordered. Continue to monitor on the inpatient unit. Continue other medications and care as ordered. Justification for Cont. Inpt. Risk for decompensation in a less restrictive environment Discharge Planning Per Dr. Alvarez Request HC Surrog/Guard Advoc?: No Russell Pink MD March 30, 2017 09:30
[2017-03-30 17:06] VITALS: O2SAT 93
[2017-03-30 19:18] VITALS: BP 121/55; PULSE 75; TEMP 98.5; O2SAT 95
[2017-03-30] MEDS: ATORVASTATIN 40 MG TAB PO SCH (22:36)
[2017-03-31 05:42] VITALS: BP 141/65; PULSE 66; RESP 16; TEMP 97.9; O2SAT 94
[2017-03-31] MEDS: LITHIUM CARBONATE 300 MG TAB PO SCH ×3 (06:00→20:59)
[2017-03-31] MEDS: LEVOTHYROXINE SODIUM 100 MCG TAB PO SCH (06:00)
[2017-03-31] MEDS: INSULIN ASPART SUPPLEMENTAL SCALE SQ SCH ×4 (06:01→21:00)
[2017-03-31] MEDS: guaiFENesin/DEXTROMETHORPHAN 200 MG/20 MG/10 ML CUP PO PRN (06:23)
[2017-03-31] MEDS: LISINOPRIL 10 MG TAB PO SCH ×2 (08:37→20:59)
[2017-03-31] MEDS: BUDESONIDE-FORMOTEROL 160/4.5 MCG INHALER INH SCH ×2 (08:37→20:58)
[2017-03-31] MEDS: DULoxetine HCl DR 30 MG CAP PO SCH ×2 (08:37→20:59)
[2017-03-31] MEDS: METOPROLOL TARTRATE 50 MG TAB PO SCH ×2 (08:37→20:59)
[2017-03-31] MEDS: PRAZOSIN HCL 5 MG CAP PO SCH ×3 (08:37→18:00)
[2017-03-31] MEDS: FUROSEMIDE 20 MG TAB PO SCH (08:37)
[2017-03-31] MEDS: PREGABALIN 75 MG CAP PO SCH (08:37)
[2017-03-31] MEDS: GLIMEPIRIDE 2 MG TAB PO SCH (08:37)
[2017-03-31] MEDS: NICOTINE 21 MG/24 HR PATCH T-DERMAL SCH (08:46)
[2017-03-31] MEDS: REMOVE OLD PATCH T-DERMAL SCH (08:46)
[2017-03-31 10:04] VITALS: O2SAT 97
--- NOTE | 2017-03-31 12:25 | HHI.PYPN ---
Subjective Remarks Patient was seen today for psychiatric reevaluation, she is calm, cooperative and very pleasant, was found actually singing, reports good mood, she says it feels good, in a good spirit, she is fully oriented 3, she says that today's Mother's Day "everybody should be happy". She denies suicidal or homicidal ideation, she denies visual and auditory hallucinations. Patient expresses her desire to switch from duloxetine to Wellbutrin "because Wellbutrin help with smoking cessation". She agrees to discuss that with her everyday psychiatrist. Patient is fully compliant with medications, no significant side effects reported. Review of Systems Other No somatic complaints Objective Alert: Yes [place]: Person, Place, Date Mood: Calm Affect: Euthymic Memory Intact: Comment (not formally assessed) Hallucinations: Other (denies any AVH) Delusions: No Delusion Type: Other (no evident delusions) Suicidal: Ideation (denies SI) Homicidal: Ideation (denies HI) Insight/Judgment Good Vitals/IOs Vital Signs Date Time Temp Pulse Resp B/P Pulse Ox O2 Delivery O2 Flow Rate FiO2 03/31/17 10:04 97 Nasal Cannula 3.00 03/31/17 05:42 97.9 66 16 141/65 Intake and Output 03/30/17 03/30/17 03/31/17 08:00 16:00 00:00 Intake Total 480 ml 480 ml Balance 480 ml 480 ml Assessment & Plan Problem List: (1) Adjustment disorder with mixed disturbance of emotions and conduct Assessment & Plan: Continue current psychotropics. Extensive support, motivation psycho education provided to ICD Code: F43.25 Assessment & Plan Estimated LOS: days Justification for Cont. Inpt. Patient is to continue current level of care in order to avoid decompensation Request HC Surrog/Guard Advoc?: No Zeeshan Zuniga MD March 31, 2017 12:25
[2017-03-31 20:21] VITALS: RESP 16
[2017-03-31] MEDS: ATORVASTATIN 40 MG TAB PO SCH (20:59)
[2017-04-01 05:30] VITALS: BP 125/79; PULSE 66; RESP 18; TEMP 99
[2017-04-01] MEDS: LITHIUM CARBONATE 300 MG TAB PO SCH ×3 (06:00→21:58)
[2017-04-01] MEDS: LEVOTHYROXINE SODIUM 100 MCG TAB PO SCH (06:00)
[2017-04-01] MEDS: INSULIN ASPART SUPPLEMENTAL SCALE SQ SCH ×4 (06:16→21:00)
[2017-04-01] MEDS: DULoxetine HCl DR 30 MG CAP PO SCH ×2 (08:37→21:58)
[2017-04-01] MEDS: FUROSEMIDE 20 MG TAB PO SCH (08:37)
[2017-04-01] MEDS: PRAZOSIN HCL 5 MG CAP PO SCH ×3 (08:37→17:15)
[2017-04-01] MEDS: LISINOPRIL 10 MG TAB PO SCH ×2 (08:37→21:58)
[2017-04-01] MEDS: GLIMEPIRIDE 2 MG TAB PO SCH (08:38)
[2017-04-01] MEDS: METOPROLOL TARTRATE 50 MG TAB PO SCH ×2 (08:38→21:58)
[2017-04-01] MEDS: PREGABALIN 75 MG CAP PO SCH ×2 (08:38→17:13)
[2017-04-01] MEDS: REMOVE OLD PATCH T-DERMAL SCH (08:45)
[2017-04-01] MEDS: NICOTINE 21 MG/24 HR PATCH T-DERMAL SCH (08:45)
[2017-04-01] MEDS: BUDESONIDE-FORMOTEROL 160/4.5 MCG INHALER INH SCH ×2 (08:45→21:58)
[2017-04-01 10:06] VITALS: O2SAT 93
--- NOTE | 2017-04-01 16:34 | HHI.PYPN ---
Subjective Remarks Patient seen in day room with nurse Catrachito, patient sitting in Jenise chair with nasal oxygen on without difficulties she is calm and somewhat more cooperative today. Above this level somewhat manipulative this with RN the vigilance though she says she feels fine. Will offer her Prolixin Decanoate 25 mg today and every 21 days Review of Systems Except as stated in HPI: all other systems reviewed are Neg Objective Alert: Yes [place]: Person, Place, Date Mood: Calm Affect: Euthymic Memory Intact: Comment (not formally assessed) Hallucinations: Other (denies any AVH) Delusions: No Delusion Type: Other (no evident delusions) Suicidal: Ideation (denies SI) Homicidal: Ideation (denies HI) Insight/Judgment Poor Vitals/IOs Vital Signs Date Time Temp Pulse Resp B/P Pulse Ox O2 Delivery O2 Flow Rate FiO2 04/01/17 10:06 93 Nasal Cannula 2.50 04/01/17 05:30 99.0 66 18 125/79 Intake and Output 03/31/17 03/31/17 04/01/17 08:00 16:00 00:00 Intake Total 3 ml 600 ml 480 ml Balance 3 ml 600 ml 480 ml Assessment & Plan Problem List: (1) Adjustment disorder with mixed disturbance of emotions and conduct ICD Code: F43.25 Assessment & Plan Estimated LOS: days patient continues somewhat irritable paranoid, though compliant medications. See medication adjustment Justification for Cont. Inpt. At this time patient will decompensate if placed in a lower level of care Discharge Planning To be determined Request HC Surrog/Guard Advoc?: No Zander Alvarez MD April 01, 2017 16:34
[2017-04-01 19:39] VITALS: BP 129/56; PULSE 63; RESP 18; TEMP 97.7; O2SAT 96
[2017-04-01] MEDS: ATORVASTATIN 40 MG TAB PO SCH (21:58)
[2017-04-01] MEDS: diphenhydrAMINE HCL 50 MG CAP PO PRN (22:12)
[2017-04-02 05:12] VITALS: BP 125/60; PULSE 67; RESP 17; TEMP 98.4; O2SAT 95
[2017-04-02] MEDS: LITHIUM CARBONATE 300 MG TAB PO SCH ×3 (06:01→21:31)
[2017-04-02] MEDS: LEVOTHYROXINE SODIUM 100 MCG TAB PO SCH (06:01)
[2017-04-02] MEDS: INSULIN ASPART SUPPLEMENTAL SCALE SQ SCH ×4 (06:20→21:00)
[2017-04-02] MEDS: NICOTINE 21 MG/24 HR PATCH T-DERMAL SCH (09:00)
[2017-04-02] MEDS: REMOVE OLD PATCH T-DERMAL SCH (09:00)
[2017-04-02] MEDS: FUROSEMIDE 20 MG TAB PO SCH (09:39)
[2017-04-02] MEDS: GLIMEPIRIDE 2 MG TAB PO SCH (09:39)
[2017-04-02] MEDS: DULoxetine HCl DR 30 MG CAP PO SCH ×3 (09:39→21:30)
[2017-04-02] MEDS: METOPROLOL TARTRATE 50 MG TAB PO SCH ×2 (09:39→21:31)
[2017-04-02] MEDS: PRAZOSIN HCL 5 MG CAP PO SCH ×3 (09:39→17:25)
[2017-04-02] MEDS: LISINOPRIL 10 MG TAB PO SCH ×2 (09:39→21:31)
[2017-04-02] MEDS: BUDESONIDE-FORMOTEROL 160/4.5 MCG INHALER INH SCH ×2 (09:40→21:32)
--- NOTE | 2017-04-02 13:34 | HHI.PYPN ---
Subjective Remarks Patient seen in dayroom sitting in Jenise chair with nasal oxygen, patient seen with nurse Porsha, chart reviewed. Patient calm pleasant with me with improved eye contact, she is more reactive occasional small smile. Did continue to discuss medications he states he still has some mild "tremors" not really obvious though her paranoia is diminished in affect has improved for now continue medication no change Review of Systems Except as stated in HPI: all other systems reviewed are Neg Objective Alert: Yes [place]: Person, Place, Date Mood: Calm Affect: Euthymic Memory Intact: Comment (not formally assessed) Hallucinations: Other (denies any AVH) Delusions: No Delusion Type: Other (no evident delusions) Suicidal: Ideation (denies SI) Homicidal: Ideation (denies HI) Insight/Judgment Poor Vitals/IOs Vital Signs Date Time Temp Pulse Resp B/P Pulse Ox O2 Delivery O2 Flow Rate FiO2 04/02/17 05:12 98.4 67 17 125/60 95 04/01/17 10:06 Nasal Cannula 2.50 Intake and Output 04/01/17 04/01/17 04/01/17 07:59 15:59 23:59 Intake Total 240 ml 2550 ml Balance 240 ml 2550 ml Assessment & Plan Problem List: (1) Adjustment disorder with mixed disturbance of emotions and conduct ICD Code: F43.25 Assessment & Plan Estimated LOS: days patient continues somewhat vigilant and suspicious though softer. Compliant medications. Justification for Cont. Inpt. At this time patient will decompensate if placed in a lower level of care Discharge Planning To be determined Request HC Surrog/Guard Advoc?: No Zander Alvarez MD April 02, 2017 13:34
[2017-04-02 19:35] VITALS: BP 112/61; PULSE 62; RESP 16; TEMP 99.1; O2SAT 98
[2017-04-02] MEDS: ATORVASTATIN 40 MG TAB PO SCH (21:30)
[2017-04-03 05:38] VITALS: BP 153/72; PULSE 81; RESP 18; TEMP 98.4; O2SAT 92
[2017-04-03] MEDS: LEVOTHYROXINE SODIUM 100 MCG TAB PO SCH (05:48)
[2017-04-03] MEDS: LITHIUM CARBONATE 300 MG TAB PO SCH ×2 (05:48→14:00)
[2017-04-03] MEDS: INSULIN ASPART SUPPLEMENTAL SCALE SQ SCH ×2 (06:07→11:00)
[2017-04-03] MEDS: PREGABALIN 75 MG CAP PO SCH (09:00)
[2017-04-03] MEDS: NICOTINE 21 MG/24 HR PATCH T-DERMAL SCH (09:00)
[2017-04-03] MEDS: DULoxetine HCl DR 30 MG CAP PO SCH (09:00)
[2017-04-03] MEDS: PRAZOSIN HCL 5 MG CAP PO SCH ×2 (09:00→13:00)
[2017-04-03] MEDS: METOPROLOL TARTRATE 50 MG TAB PO SCH (09:00)
[2017-04-03] MEDS: FUROSEMIDE 20 MG TAB PO SCH (09:00)
[2017-04-03] MEDS: GLIMEPIRIDE 2 MG TAB PO SCH (09:00)
[2017-04-03] MEDS: REMOVE OLD PATCH T-DERMAL SCH (09:00)
[2017-04-03] MEDS: LISINOPRIL 10 MG TAB PO SCH (09:00)
[2017-04-03] MEDS: BUDESONIDE-FORMOTEROL 160/4.5 MCG INHALER INH SCH (09:00)
--- NOTE | 2017-04-03 10:16 | HHI.PYPN ---
Subjective Remarks Patient seen in day room with nurse Dacia, chart review, patient compliant medications. Patient seen in Jenise chair with nasal oxygen on, patient continues calm cooperative pleasant with fair eye contact though still needs significant interventions to help with ADLs and hygiene. She does denies suicidality homicidality voices or visions at this time. Placement may become quite problematic Review of Systems Except as stated in HPI: all other systems reviewed are Neg Objective Alert: Yes [place]: Person, Place, Date Mood: Calm Affect: Euthymic Memory Intact: Comment (not formally assessed) Hallucinations: Other (denies any AVH) Delusions: No Delusion Type: Other (no evident delusions) Suicidal: Ideation (denies SI) Homicidal: Ideation (denies HI) Insight/Judgment Poor Vitals/IOs Vital Signs Date Time Temp Pulse Resp B/P Pulse Ox O2 Delivery O2 Flow Rate FiO2 04/03/17 05:38 98.4 81 18 153/72 92 04/01/17 10:06 Nasal Cannula 2.50 Intake and Output 04/02/17 04/02/17 04/03/17 08:00 16:00 00:00 Intake Total 1680 ml Balance 1680 ml Assessment & Plan Problem List: (1) Adjustment disorder with mixed disturbance of emotions and conduct ICD Code: F43.25 Assessment & Plan Estimated LOS: days patient remains calm,, less irritability, compliant medications still needing any significant interventions and assistance by staff placements becoming more problematic Justification for Cont. Inpt. At this time patient will decompensate placed in a lower level of care Discharge Planning To be determined Request HC Surrog/Guard Advoc?: No Zander Alvarez MD April 03, 2017 10:16
[2017-04-03] MEDS ORDERED: AMAR2TAB PO (12:40)
[2017-04-03] MEDS ORDERED: LITH300T3 PO (12:40)
[2017-04-03] MEDS ORDERED: DULO1CAP2 PO (12:40)
[2017-04-03] MEDS ORDERED: FLUP5TAB PO (12:40)
[2017-04-03] MEDS ORDERED: SYMB160A INH (12:40)
[2017-04-03] MEDS ORDERED: METO-309 PO (12:40)
[2017-04-03] MEDS ORDERED: FLUP1INJ IM (12:40)
[2017-04-03] MEDS ORDERED: LISI10TA3 PO (12:40)
[2017-04-03] MEDS ORDERED: ATOR40TA16 PO (12:40)
[2017-04-03] MEDS ORDERED: LYRI75CA PO (12:40)
[2017-04-03] MEDS ORDERED: FURO20TA PO (12:40)
[2017-04-03] MEDS ORDERED: LEVO.1 PO (12:40)
[2017-04-03] MEDS ORDERED: PRAZ5 PO (12:40)
--- NOTE | 2017-04-03 12:46 | HHI.DS ---
Psychiatry Discharge Summary Inpatient Psychiatric care?: Yes Advance Directive: No Reason Not Provided: refused Mental Health AdvanceDirective: No Health Care Proxy: No Admission Admission Date March 23, 2017 at 16:45 Admission Diagnosis: (1) Adjustment disorder with mixed disturbance of emotions and conduct ICD Code: F43.25 Brief History Ms. Arvizu is a 56 year-old female with a history of schizoaffective disorder who was transferred from [facility] under Urias Act initiated by ED provider for depression with SI. Records from [facility] reviewed. ED screening note indicates family took all her [place] and she does not want to live and was threatening to cut her throat or run into traffic. Reviewing our own electronic medical record, I note that the patient was admitted most recently by Dr. Aguilar in June 2016. I also note subsequent psychiatric consultations by Dr. Alvarez and Dr. Slater who opined that the patient's suicidal threats are largely manipulative in nature. Patient seen and examined with nurse, Kaylynn. Chart reviewed. Case discussed with nursing staff. On my examination today, the patient presents once again is fairly manipulative. She accuses her family of stealing items from her and kicking her out of her house. She says that she is now presently homeless. She says that in response to the stressors she is feeling suicidal and may overdose or run out into traffic. She says that she has been off of her psychotropics for 4 days prior to admission secondary to running out. She denies any AVH, and I can elicit no delusional beliefs. No real depressive or hypomanic/manic symptoms. The remainder of the psychiatric ROS is negative. Past psychiatric history: Patient reports a history of schizophrenia and bipolar disorder. She is not currently under the care of a psychiatrist but has an appointment at the end of the month. Her most recent psychiatric admission was here as noted above. She reports that her home psychotropics include Cymbalta 40 mg total daily dose, and vague and 9 mg daily and lithium 900 mg daily in divided doses. She endorses a history of suicide attempts by overdose. Family history: Patient reports that her sister has depression, anxiety and PTSD. Her Xanax few who may have attempted suicide. Chemical dependency history: The patient denies any abuse of drugs or alcohol. Social history: Patient reports that she is on disability. She is apparently now homeless. 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 She is single with 3 children. No reported legal issues. No access to guns or firearms. Complains of some chronic abdominal and neck pain. Tobacco Use In Past 30 Days: 5 or More Cigarettes/Day Alcohol Use: Never Hospital Course Patient's initial hospital course was somewhat stressful. Patient showing anxiety irritability and some paranoia, also somewhat need as many of staff for a ADLs and hygiene. However with the addition of the Prolixin continue boundaries being sent by the staff patient's mood did improve she became compliant with medication. While still needing assistance in hygiene and daily activity issues more cooperative with this. At the present time patient denies suicidality homicidality voices or visions. After my progress note written this morning we discovered that the patient's mother is willing to have her compliant with her today. At this point I feel patient has met her maximum benefit of this hospitalization thus will be discharged today to her mother with Rx 1 month follow-up [facility] services a follow- up with PCP for various medical issues including her nasal oxygen Results Blood Pressure 153 / 72 Vital Signs Date Time Temp Pulse Resp B/P Pulse Ox O2 Delivery O2 Flow Rate FiO2 04/03/17 05:38 98.4 81 18 153/72 92 04/02/17 10:00 Nasal Cannula 04/01/17 10:06 2.50 [place] level 0.6 on 03/27 Summary of Procedures None done Imaging Last Impressions Chest X-Ray 03/25/17 0000 Signed Impressions: Service Date/Time: Saturday, March 25, 2017 14:40 - CONCLUSION: Compensated cardiomegaly otherwise negative . There is no infiltrate or significant failure. Christiano Yates MD FACR Pending results at discharge: No Medications # of Antipsychotic meds at D/C: 1 Approp Antipsych med options 1 - Minimum of three failed multiple trials of monotherapy. 2 - Documented plan to taper to monotherapy due to previous use of multiple meds OR cross-taper in progress at D/C. 3 - Documentation of augmentation of Clozapine. 4 - Justification other than those listed in allowable values 1-3, document here : Discharge Discharge Date: April 03, 2017 Discharge Diagnosis: (1) Adjustment disorder with mixed disturbance of emotions and conduct Diagnosis: Principal ICD Code: F43.25 Mental Status Exam at Disch Alert oriented obese white female sitting in Jenise chair with nasal oxygen, she is otherwise normal active, mood is euthymic to mildly dysphoric, good range intensity were affect, speech rate and rhythm are within normal limits though no formal thought disorders. No auditory or visual hallucinations no delusions noted. Insight and judgment poor to fair cognition grossly intact Pt Condition on Discharge: Stable Discharge Disposition: Discharge Home Discharge Instructions Diet Instructions: As Tolerated, No Restrictions Activities you can perform: Regular-No Restrictions Scheduled Appointment: [facility] Discharge Time > 30 minutes Discharge/Advance Care Plan Health Problems: (1) Adjustment disorder with mixed disturbance of emotions and conduct Goals to promote your health * To prevent worsening of your condition and complications * To maintain your health at the optimal level Directions to meet your goals Take your medications as prescribed Follow your dietary instruction Follow activity as directed Keep your appointments as scheduled Take your immunizations and boosters as scheduled If your symptoms worsen call your PCP, if no PCP go to Urgent Care Center or Emergency Room For 10/06 questions related to your inpatient stay or results of tests pending at discharge, please contact Dr. Zander Alvarez at Smoking is Dangerous to Your Health. Avoid second hand smoking Zander Alvarez MD April 03, 2017 12:46
== END 2017-04-03 15:10 | disposition home or self-care (01) | DRG 882 ==
LOC: H250 16:45
PROVIDERS: ADMIT Psychiatry & Neurology Psychiatry; ATTEND Psychiatry & Neurology Psychiatry
DX: F43.25 Adjustment disorder with mixed disturbance of emotions and conduct (principal); I50.20 Unspecified systolic (congestive) heart failure; I10 Essential (primary) hypertension; E03.9 Hypothyroidism, unspecified; E66.9 Obesity, unspecified; Z59.0 Homelessness; F25.9 Schizoaffective disorder, unspecified; E11.9 Type 2 diabetes mellitus without complications; Z79.4 Long term (current) use of insulin; Z79.84 Long term (current) use of oral hypoglycemic drugs; F17.210 Nicotine dependence, cigarettes, uncomplicated; J44.9 Chronic obstructive pulmonary disease, unspecified; Z96.653 Presence of artificial knee joint, bilateral; Z86.73 Personal history of transient ischemic attack (TIA), and cerebral infarction without residual deficits; E78.5 Hyperlipidemia, unspecified; J02.9 Acute pharyngitis, unspecified
CPT/HCPCS: 71010; 80053; 80061; 80178; 81001; 82948; 83036; 84443; 85025; 94640; 94664; J1815; J2680; J7613; Q0163

== ENCOUNTER 2017-04-07 13:26 | Emergency (ER) | payer MEDICAID, OTHER ==
[~2017-04-07] VITALS: Ht 165.1 cm; Wt 120.0 kg
[~2017-04-07 13:26] MED LIST changes: +AMAR2TAB PO; +ATOR40TA16 PO; +DULO1CAP2 PO; +FLUP1INJ IM; +FLUP5TAB PO; +FURO20TA PO; -GLIM2TAB PO; +LEVO.1 PO; +LISI10TA3 PO; +LITH300T3 PO; +SYMB160A INH
[2017-04-07 13:34] VITALS: BP 209/94; PULSE 75; RESP 20; TEMP 98.1; O2SAT 95
--- NOTE | 2017-04-07 13:40 | PD ---
HPI Chief Complaint: ba Time Seen by Provider: 13:34 Travel History International Travel<30 days: No Contact w/Intl Traveler<30days: No Traveled to known affect area: No History of Present Illness HPI 56-year-old female with history of schizoaffective disorder presents under Urias act initiated by the police department. The patient reports that today she had an argument with her niece. Her niece wanted a cigarette and during the course of the argument the patient call the police and told them that she was suicidal. She feels better now but she is still somewhat depressed. The patient was recently admitted here for several days psychiatrically. She was discharged in appearance on the . She has been noncompliant with his psychiatric medications that were prescribed, in fact she has not picked him up from the pharmacy. She denies any drug or alcohol use. She denies any acute medical complaints. PFSH Past Medical History Hx Anticoagulant Therapy: Yes Asthma: Yes Blood Disorders: No Anxiety: Yes Depression: Yes Cardiovascular Problems: Yes High Cholesterol: Yes Chest Pain: Yes Congestive Heart Failure: Yes COPD: Yes Cerebrovascular Accident: Yes (CVA X 2 ) Diabetes: Yes Diminished Hearing: No Endocrine: No Gastrointestinal Disorders: No GERD: Yes Genitourinary: No Hepatitis: Yes (C) Hypertension: Yes Immune Disorder: No Implanted Vascular Access Dvce: Yes Musculoskeletal: No (weakness to lower extremities) Neurologic: No Psychiatric: Yes Reproductive: No Respiratory: Yes Immunizations Current: Yes Schizophrenia: Yes Sleep Apnea: Yes Thyroid Disease: Yes Menopausal: Yes : 3 Para: 3 Tubal Ligation: Yes Past Surgical History Abdominal Surgery: Yes (CURTIS) Cholecystectomy: Yes Ear Surgery: No Endocrine Surgery: No Eye Surgery: No Gynecologic Surgery: Yes Hysterectomy: Yes Joint Replacement: Yes ( TOTAL KNEE REPLACEMENT -RIGHT) Oral Surgery: Yes (TEETH EXTRACTED) Other Surgery: Yes Social History Alcohol Use: No Tobacco Use: Yes (1.5 PPD) Substance Use: No Allergies-Medications (Allergen,Severity, Reaction): Coded Allergies: Aspirin (Verified Allergy, Severe, Anaphylaxis, 04/07/17) Darvocet-N 100 (Verified Allergy, Severe, 04/07/17) Tramadol (Verified Allergy, Severe, 04/07/17) Gabapentin (Verified Allergy, Unknown, 04/07/17) per Discharge paperwork from [facility]. Grape (Verified Allergy, Unknown, 04/07/17) Grape Flavor - per Discharge paperwork from [facility]. Miralax (Verified Allergy, Unknown, 04/07/17) per Discharge paperwork from [facility]. Oxycodone (Verified Allergy, Unknown, 04/07/17) per Discharge paperwork from [facility]. Propoxyphene (Verified Allergy, Unknown, 04/07/17) per Discharge paperwork from [facility]. [place] (Unverified Allergy, Unknown, 04/07/17) *MDRO Multi-Drug Resistant Organism (Verified Adverse Reaction, Unknown, ) ESBL E. coli (urine) - 02/19/2017 Uncoded Allergies: Tape (Allergy, Unknown, 02/20/17) per Discharge paperwork from [facility]. Reported Meds & Prescriptions Reported Meds & Active Scripts Active Lyrica (Pregabalin) 75 Mg Cap 75 Mg PO DAILY Minipress (Prazosin HCl) 5 Mg Cap 5 Mg PO TID Lopressor (Metoprolol Tartrate) 50 Mg Tab 50 Mg PO BID [place] Carbonate 300 Mg Tab 300 Mg PO Q8HR Lisinopril 10 Mg Tab 10 Mg PO BID Synthroid (Levothyroxine Sodium) 100 Mcg Tab 100 Mcg PO DAILY@0600 Amaryl (Glimepiride) 2 Mg Tab 2 Mg PO DAILY Furosemide 20 Mg Tab 20 Mg PO DAILY Fluphenazine (Fluphenazine HCl) 5 Mg Tab 5 Mg PO Q12HR Fluphenazine Decanoate Inj (Fluphenazine Decanoate) 125 Mg/5 Ml Inj 25 Mg IM Q21D Next injection due 04/21/[address] (Duloxetine HCl) 30 Mg Capdr 30 Mg PO BID Symbicort Inh (Budesonide/Formoterol Fumarate) 160-4.5 Mcg/Act Aero 1 Puff INH Q12HR Atorvastatin (Atorvastatin Calcium) 40 Mg Tab 40 Mg PO HS Reported Zestril (Lisinopril) 10 Mg Tab 10 Mg PO DAILY Novolog Inj (Insulin Aspart) 1,000 Unit/10 Ml Vial 1-9 Units SQ ACHS Max dose at bedtime:( )units; sugars less than 70,(0)units; sugars 150-199,(1) unit; sugars 200-249,(3) units; sugars 250-299,(5) units; sugars 300-349,(7) units; sugars greater than 349,(9) units Levothyroxine (Levothyroxine Sodium) 100 Mcg Tab 100 Mcg PO DAILY Lamictal (Lamotrigine) 25 Mg Tab 25 Mg PO BID Furosemide 40 Mg Tab 40 Mg PO DAILY Celexa (Citalopram Hydrobromide) 40 Mg Tab 40 Mg PO DAILY Review of Systems Except as stated in HPI: all other systems reviewed are Neg Physical Exam Narrative GENERAL: Obese female in no acute distress SKIN: Warm and dry. HEAD: Atraumatic. Normocephalic. EYES: Pupils equal and round. No scleral icterus. No injection or drainage. ENT: No nasal bleeding or discharge. Mucous membranes pink and moist. NECK: Trachea midline. No JVD. CARDIOVASCULAR: Regular rate and rhythm. No murmur appreciated. RESPIRATORY: No accessory muscle use. Clear to auscultation. Breath sounds equal bilaterally. GASTROINTESTINAL: Abdomen soft, non-tender, nondistended. Hepatic and splenic margins not palpable. MUSCULOSKELETAL: No obvious deformities. 1+ lower extremity edema NEUROLOGICAL: Awake and alert. No obvious cranial nerve deficits. Motor grossly within normal limits. Normal speech. Data Data Last Documented VS Vital Signs Date Time Temp Pulse Resp B/P Pulse Ox O2 Delivery O2 Flow Rate FiO2 04/07/17 13:42 71 22 205/90 96 Room Air 04/07/17 13:34 [address] [place] (Li) (04/07/17 13:38) Drug Screen, Random Urine (04/07/17 13:38) Labs Laboratory Tests Test 04/07/17 04/07/17 13:50 14:00 Urine Opiates Screen NEG Urine Barbiturates Screen NEG Urine Amphetamines Screen NEG Urine Benzodiazepines Screen NEG Urine Cocaine Screen NEG Urine Cannabinoids Screen NEG [place] Level 0.1 MEQ/L MDM Medical Decision Making Medical Screen Exam Complete: Yes Emergency Medical Condition: Yes Medical Record Reviewed: Yes Differential Diagnosis Medication noncompliance, adjustment reaction, acute psychosis, schizoaffective disorder Narrative Course 56-year-old female with history of schizoaffective disorder presents under Urias act or evaluation of suicidal ideation. Mental health screening discussed with the patient. Psychiatric screen ordered. Lab work from most recent visit has been reviewed. [place] today is subtherapeutic. Drug screen is normal. Medically cleared for psychiatric disposition. Diagnosis Primary Impression: Adjustment disorder Qualified Code: F43.20 - Adjustment disorder, unspecified type Ez Lobo April 07, 2017 13:40
[2017-04-07 13:42] VITALS: BP 205/90; PULSE 71; RESP 22; O2SAT 96
[2017-04-07 14:29] LABS: AMPHETAMINE, URINE NEG (NEG); BARBITURATES, URINE NEG (NEG); COCAINE, URINE NEG (NEG)
[2017-04-07 19:52] VITALS: BP 182/88; PULSE 87; RESP 18; O2SAT 99
[2017-04-07] MEDS ORDERED: LISINOPRIL 10 MG TAB PO ONE (20:00)
[2017-04-07] MEDS ORDERED: METOPROLOL TARTRATE 50 MG TAB PO ONE (20:00)
[2017-04-08 00:42] VITALS: BP 178/68; PULSE 70; RESP 16; O2SAT 100
[2017-04-08 06:47] VITALS: BP 144/72; PULSE 88; RESP 20; O2SAT 98
[2017-04-08 07:10] VITALS: BP 148/63; PULSE 89; RESP 17; TEMP 97.8; O2SAT 99
--- NOTE | 2017-04-08 09:46 | PD ---
History of Present Illness Chief Complaint: Psychiatric Symptoms Time Seen by Provider: 09:40 Travel History International Travel<30 Days: No Contact w/Intl Traveler<30days: No Known affected area: No Legal Status Legal Status: [employer] Act History of Present Illness: History of Present Illness HPI 56-year-old female with history of schizoaffective disorder presents under [place] act initiated by the police department. The report alleges that the patient reported to the police that she had been feeling suicidal and " wants to harm herself". ED documentation is included in this report: " The patient reports that today she had an argument with her niece. Her niece wanted a cigarette and during the course of the argument the patient call the police and told them that she was suicidal. She feels better now but she is still somewhat depressed. The patient was recently admitted here for several days psychiatrically. She was discharged in appearance on the . She has been noncompliant with his psychiatric medications that were prescribed, in fact she has not picked him up from the pharmacy. She denies any drug or alcohol use. She denies any acute medical complaints." Patient seen. Record reviewed. Patient sitting at bedside. Awake, alert and oriented. Tearful and states " I just want to go home. It was a stupid argument over a cigarette and I said that I wanted to leave and hurt myself . Then we made up but the police arrived said they had to bring me here". Patient at this time is denying any suicidal ideation, intent or plan. There is no rebecca and no psychosis. She has been non compliant with medication because she claims that she has no insurance at this time. Will get her insurance in several days. She intends on continuing psychiatric care at [facility]. PFS Past Medical History Hx Anticoagulant Therapy: Yes Asthma: Yes Blood Disorders: No Anxiety: Yes Depression: Yes Cardiovascular Problems: Yes High Cholesterol: Yes Chest Pain: Yes Congestive Heart Failure: Yes COPD: Yes Cerebrovascular Accident: Yes Diabetes: Yes Patient Takes Glucophage: Yes Diminished Hearing: No Endocrine: No Gastrointestinal Disorders: No GERD: Yes Genitourinary: No Hepatitis: Yes (C) Hypertension: Yes Immune Disorder: No Implanted Vascular Access Dvce: Yes Neurologic: No Psychiatric: Yes Reproductive: No Respiratory: Yes Immunizations Current: Yes Schizophrenia: Yes Sleep Apnea: Yes Thyroid Disease: Yes Tetanus Vaccination: > 5 Years Influenza Vaccination: No Menopausal: Yes : 3 Para: 3 Tubal Ligation: Yes Past Surgical History Abdominal Surgery: Yes (CURTIS) Cholecystectomy: Yes Ear Surgery: No Endocrine Surgery: No Eye Surgery: No Gynecologic Surgery: Yes Hysterectomy: Yes Joint Replacement: Yes ( TOTAL KNEE REPLACEMENT -RIGHT) Oral Surgery: Yes (TEETH EXTRACTED) Other Surgery: Yes Psychiatric History Psychiatric History Hx Psychiatric Treatment: Patient has long history with psych. Most recently [facility] [place] [facility] [place]chaarged on the 03 of April History of Inpatient Treatment: Yes Guns or firearms in home: No Social History Single female . On disability. Living with her niece. Hx Alcohol Use: No Hx Tobacco Use: Yes (1.5 PPD) Hx Substance Use: No Substance Use Type: Nicotine/Cigarettes Hx of Substance Use Treatment: No Family Psychiatric History Sister with depression, PTSD Allergies-Medications (Allergen,Severity, Reaction): Coded Allergies: Aspirin (Verified Allergy, Severe, Anaphylaxis, 04/07/17) Darvocet-N 100 (Verified Allergy, Severe, 04/07/17) Tramadol (Verified Allergy, Severe, 04/07/17) Gabapentin (Verified Allergy, Unknown, 04/07/17) per Discharge paperwork [facility]. Grape (Verified Allergy, Unknown, 04/07/17) Grape Flavor - per Discharge paperwork from [facility]. Miralax (Verified Allergy, Unknown, 04/07/17) per Discharge paperwork from [facility]. Oxycodone (Verified Allergy, Unknown, 04/07/17) per Discharge paperwork from [facility]. Propoxyphene (Verified Allergy, Unknown, 04/07/17) per Discharge paperwork from [facility]. Blanchard (Unverified Allergy, Unknown, 04/07/17) *MDRO Multi-Drug Resistant Organism (Verified Adverse Reaction, Unknown, ) ESBL E. coli (urine) - 02/19/2017 Uncoded Allergies: Tape (Allergy, Unknown, 02/20/17) per Discharge paperwork from [facility]. Reported Meds & Prescriptions Reported Meds & Active Scripts Active Lyrica (Pregabalin) 75 Mg Cap 75 Mg PO DAILY Minipress (Prazosin HCl) 5 Mg Cap 5 Mg PO TID Lopressor (Metoprolol Tartrate) 50 Mg Tab 50 Mg PO BID [employer] Carbonate 300 Mg Tab 300 Mg PO Q8HR Lisinopril 10 Mg Tab 10 Mg PO BID Synthroid (Levothyroxine Sodium) 100 Mcg Tab 100 Mcg PO DAILY@0600 Amaryl (Glimepiride) 2 Mg Tab 2 Mg PO DAILY Furosemide 20 Mg Tab 20 Mg PO DAILY Fluphenazine (Fluphenazine HCl) 5 Mg Tab 5 Mg PO Q12HR Fluphenazine Decanoate Inj (Fluphenazine Decanoate) 125 Mg/5 Ml Inj 25 Mg IM Q21D Next injection due 04/21/[address] (Duloxetine HCl) 30 Mg Capdr 30 Mg PO BID Symbicort Inh (Budesonide/Formoterol Fumarate) 160-4.5 Mcg/Act Aero 1 Puff INH Q12HR Atorvastatin (Atorvastatin Calcium) 40 Mg Tab 40 Mg PO HS Reported Zestril (Lisinopril) 10 Mg Tab 10 Mg PO DAILY Novolog Inj (Insulin Aspart) 1,000 Unit/10 Ml Vial 1-9 Units SQ ACHS Max dose at bedtime:( )units; sugars less than 70,(0)units; sugars 150-199,(1) unit; sugars 200-249,(3) units; sugars 250-299,(5) units; sugars 300-349,(7) units; sugars greater than 349,(9) units Levothyroxine (Levothyroxine Sodium) 100 Mcg Tab 100 Mcg PO DAILY Lamictal (Lamotrigine) 25 Mg Tab 25 Mg PO BID Furosemide 40 Mg Tab 40 Mg PO DAILY Celexa (Citalopram Hydrobromide) 40 Mg Tab 40 Mg PO DAILY Review of Systems Except as stated in HPI: all other systems reviewed are Neg Musculoskeletal: COMPLAINS OF: Joint pain, Back pain Exam Alert: Yes [place]: Person (ox4) Mood: Anxious Affect: Tearful Speech: Clear, Logical Eye Contact: Normal Memory Intact: Comment (no impairment) Hallucinations: Other (neagtive) Suicidal: Ideation (Deneis any) Homicidal: Ideation (Deneis any) Insight/Judgement Poor. No timpaired MDM Medical Decision Making Medical Record Reviewed: Yes Assessment/Plan 56 year old female with history of schizoaffective disorder who in context of an argument over cigarettes stated she wanted to leave as well as wanted to hurt herself. At this time the patient does not meet BA criteria. The BA will be lifted. Cleared from psychiatry for discharge Follow up with [facility]. Orders [employer] (Li) (04/07/17 13:38) Drug Screen, Random Urine (04/07/17 13:38) Diet Diabetic (04/07/17 Dinner) Metoprolol Tartrate (Lopressor) (04/07/17 20:00) Lisinopril (Prinivil) (04/07/17 20:00) Psych Screen (04/07/17 21:50) Diet Diabetic (04/08/17 Breakfast) Results Vital Signs Date Time Temp Pulse Resp B/P Pulse Ox O2 Delivery O2 Flow Rate FiO2 04/08/17 07:10 97.8 89 17 148/63 99 Room Air 04/08/17 07:10 89 18 04/08/17 06:47 88 20 144/72 98 Room Air 04/08/17 00:42 70 16 178/68 100 Room Air 04/07/17 19:52 87 18 182/88 99 Room Air 04/07/17 13:42 71 22 205/90 96 Room Air 04/07/17 13:42 75 20 04/07/17 13:34 98.1 75 20 209/94 95 Laboratory Tests Test 04/07/17 04/07/17 13:50 14:00 Urine Opiates Screen NEG Urine Barbiturates Screen NEG Urine Amphetamines Screen NEG Urine Benzodiazepines Screen NEG Urine Cocaine Screen NEG Urine Cannabinoids Screen NEG [employer] Level 0.1 Diagnosis Primary Impression: schizoaffective disorder depressed Additional Impression: Adjustment disorder Psychiatrically Cleared: Yes Med/ Other Pt Specific Info: No Change to Meds Disposition: 01 DISCHARGE HOME Condition: Stable Problem Qualifiers Additional Impression: Adjustment disorder Qualified Code: F43.20 - Adjustment disorder, unspecified type Dorie Weber April 08, 2017 09:46
[2017-04-08 10:27] VITALS: BP 130/77; TEMP 97.8
== END 2017-04-08 10:29 | disposition home or self-care (01) ==
LOC: NEPC 13:26 → NEPD 04-08 10:29
DX: F25.8 Other schizoaffective disorders (principal); F43.21 Adjustment disorder with depressed mood; E11.9 Type 2 diabetes mellitus without complications; I10 Essential (primary) hypertension; E78.00 Pure hypercholesterolemia, unspecified; I50.9 Heart failure, unspecified; J44.9 Chronic obstructive pulmonary disease, unspecified; K21.9 Gastro-esophageal reflux disease without esophagitis; Z79.4 Long term (current) use of insulin; F17.210 Nicotine dependence, cigarettes, uncomplicated
CPT/HCPCS: 80178; 80307; 99283